=== PATIENT | female | born 1955 | race African-American/Black ===

== ENCOUNTER 2016-08-02 13:36 | Emergency (ER) | payer OTHER ==
[~2016-08-02] VITALS: Ht 154.9 cm; Wt 117.9 kg
[~2016-08-02 13:36] MED LIST: ASPIR 8181 MG ORAL; BUPROPION HCL100 MG PO; CARISOPRODOL350 MG PO; CATAPRES0.2 MG ORAL; CEPHALEXIN500 MG ORAL; CLARITIN-D 121 EAC1 PO; ENALAPRIL MALEA10 MG PO; HUMALOG 75/255 UNIT1 SUBQ; HUMALOG MI100 UNIT/6 SQ; HYDRALAZINE HCL25 M1 ORAL; IBUPROFEN600 MG ORAL; IBUPROFEN600 MG PO; LEVAQUIN500 MG ORAL; LITHOBID PO; LORATADINE10 M1 PO; LOSARTAN POTASS50 MG ORAL; METHOCARBAMOL500 MG ORAL; NORCO 5-325 TA1 EACH ORAL; NORCO 5-325 TA1 EACH PO; PRILOSEC20 MG PO; QVAR7.3 GM INH; RESTORIL7.5 MG PO; TYLENOL #31 TAB PO; VENTOLIN HFA18 GM INH; VERAPAMIL ER240 MG PO; ZITHROMAX500 MG ORAL
[2016-08-02 13:43] VITALS: BP 132/80
[2016-08-02] MEDS ORDERED: Norco 10mg/325mg tab ORAL ONE (14:15)
--- NOTE | 2016-08-02 16:02 | Emergency Room Report ---
History of Present Illness General Chief Complaint: Multiple Trauma/Fall Source: Patient Present Illness HPI [id number] BIBEMS for left chest wall and lower back pain s/p slip and fall on lower back in shower. Not sure if she hit chest on fall but very tender to palpation. Able to ambulate but with pain. Denies hitting head, LOC. Not on ASA, AC. Denies abd pain, SOB, headache, nasuea/vomiting, urinary complaints. Allergies: Coded Allergies: PENICILLINS (Verified Allergy, Severe, Anaphylaxis, 03/09/12) TOMATO (Verified Allergy, Severe, Anaphylaxis, 03/09/12) Kiwi (Verified Allergy, Intermediate, HIVES & UTACARIA, 03/09/12) IBUPROFEN (Unverified Allergy, Unknown, 08/02/16) Uncoded Allergies: PENICILLIN (Allergy, Unknown, 08/02/16) Patient History Past Medical History: see triage record, old chart reviewed Past Surgical History: none Pertinent Family History: none Social History: Denies: alcohol use, drug use, smoking Now: No Immunizations: UTD Reviewed Nursing Documentation: PMH: Agreed, PSxH: Agreed Nursing Documentation-PMH Past Medical History: No History, Except For Hx Hypertension: Yes Hx COPD: Yes Hx Diabetes: Yes Hx Cancer: No Hx Gastrointestinal Problems: Yes - gerd obesity Review of Systems All Other Systems: negative except mentioned in HPI Physical Exam Vital Signs Date Time Temp Pulse Resp B/P Pulse Ox O2 Delivery O2 Flow Rate FiO2 08/02/16 13:36 98.4 90 18 139/80 96 Room Air Sp02 EP Interpretation: reviewed, normal General Appearance: normal inspection, well appearing, no apparent distress, alert, GCS 15, non-toxic, obese Head: normocephalic, atraumatic Eyes: bilateral eye EOMI, bilateral eye PERRL ENT: normal ENT inspection, hearing grossly normal, normal voice Neck: normal inspection, full range of motion, supple, no bony tend Respiratory: normal inspection, lungs clear, normal breath sounds, no respiratory distress, no retraction, no wheezing, other - Chest wall vr, chest symmetrical Cardiovascular #1: regular rate, rhythm, no edema Gastrointestinal: normal inspection, normal bowel sounds, non tender, soft, no guarding, no hernia Genitourinary: no CVA tenderness Musculoskeletal: normal inspection, back normal, normal range of motion, Dominique' s Sign negative Neurologic: normal inspection, alert, oriented x3, responsive, er registrar III-XII nml as tested, motor strength/tone normal, speech normal Psychiatric: normal inspection, judgement/insight normal, mood/affect normal Skin: normal inspection, normal color, no rash Medical Decision Making Diagnostic Impression: Primary Impression: Fall Qualified Codes: W19.XXXA - Unspecified fall, initial encounter Additional Impressions: Rib contusion Qualified Codes: S20.212A - Contusion of left front wall of thorax, initial encounter Lower back injury Qualified Codes: S39.92XA - Unspecified injury of lower back, initial encounter ER Course Accidental trip and fall on lower back in shower Xrays of chest, LS spine unremarkable for acute traumatic injury VSS. Afebrile GCS 15 No distracting injury No focal neuro deficits Analgesia given in ED DC home Chest X-Ray Diagnostic Results Chest X-Ray Ordered: Yes # of Views/Limited/Complete: Complete EP Interpretation: Yes Interpretation: no consolidation, no effusion, no pneumothorax, no acute cardiopulmonary disease, other - no rib fx Indication: Chest Pain Impression: No acute disease Interpreting ER Provider: Rod Other X-Ray Diagnostic Results X-Ray ordered: LS spine # of Views/Limited Vs Complete: 3 View EP Interpretation: Yes Interpretation: no fractures, no dislocation Indication: Pain Impression: No acute disease Interpreting ER Provider: Rod Last Vital Signs Date Time Temp Pulse Resp B/P Pulse Ox O2 Delivery O2 Flow Rate FiO2 08/02/16 13:43 98.6 85 21 132/80 97 Room Air Status: improved Disposition: AGAINST MEDICAL ADVICE Referrals: NON PHYSICIAN (PCP) EILEEN BAILEY M.D. Aug 02, 2016 16:02
[2016-08-02] MEDS ORDERED: ACETAMINOPHEN-1 EAC1 ORAL (16:04)
[2016-08-02 16:56] VITALS: BP 149/77
--- NOTE | 2016-08-03 11:08 | Diagnostic Imaging Report ---
Indications: Fall, low back pain. Technique: 3 views of the lumbar spine Findings: Comparison: None 5 mm anterior subluxation of L5 on S1. Remainder of vertebral alignment is intact. No fracture, lytic destruction, or other acute changes are demonstrated. L5-S1 disc space narrowing with marginal osteophyte formation, discogenic sclerosis. Remaining disc space is unremarkable in appearance. Bones diffusely demineralized. IMPRESSION: No evidence of acute lumbar injury L5-S1 degenerative disc disease and grade 1 anterolisthesis
--- NOTE | 2016-08-03 11:13 | Diagnostic Imaging Report ---
\H\LEFT RIB RADIOGRAPHS\N\ Indications: Fall, left rib cage pain. Technique: 4 views of the left ribs. Findings: Comparison: None. Suboptimal positioning limits evaluation. Apparent focal contour deformity lateral aspect left sixth rib on single view. No acute fracture, lytic destruction, periosteal reaction, or other acute skeletal changes are identified. The overlying chest wall soft tissues, underlying pleura and pulmonary parenchyma are unremarkable. IMPRESSION: Suggestion of old fracture left sixth rib No definite evidence of acute fracture, limited as described \H\CHEST RADIOGRAPH\N\ Indications: Fall, chest pain Technique: Portable AP chest Findings: Comparison: 02/05/16 Suboptimal inspiration limits evaluation. Patient's body habitus decreases image quality, further limiting evaluation. Cardiac silhouette remains upper limits of normal in size. Central pulmonary vasculature remains prominent. Peripheral pulmonary vasculature remains within normal limits. Linear densities have developed in the right lung base and persistent left lower lung. Right minor fissure thickening persists. Otherwise, no pleural abnormality demonstrated. Old, healed fracture left clavicle again noted. IMPRESSION: Development of subsegmental atelectasis right lung base Otherwise no evidence of acute cardiopulmonary disease or acute injury Stable chronic changes as described
== END 2016-08-02 16:58 | disposition home or self-care (01) ==
LOC: EDBD 13:36 → EMR 14:46
DX: S20.212A Contusion of left front wall of thorax, initial encounter (principal); S39.92XA Unspecified injury of lower back, initial encounter; W19.XXXA Unspecified fall, initial encounter; Y92.012 Bathroom of single-family (private) house as the place of occurrence of the external cause; M51.36 Other intervertebral disc degeneration, lumbar region; I10 Essential (primary) hypertension; J44.9 Chronic obstructive pulmonary disease, unspecified; Z88.0 Allergy status to penicillin; Z91.018 Allergy to other foods; Z88.6 Allergy status to analgesic agent
CPT/HCPCS: 72020; 99283

== ENCOUNTER 2016-12-19 10:53 | Inpatient (IN) | payer OTHER ==
[~2016-12-19] VITALS: Ht 157.5 cm; Wt 108.9 kg
[~2016-12-19 10:53] MED LIST changes: +ACETAMINOPHEN-1 EAC1 ORAL
[2016-12-19] MEDS ORDERED: Sodium Chloride 500ML 500 ML IV ONE (11:21)
--- NOTE | 2016-12-19 11:23 | Emergency Room Report ---
History of Present Illness General Chief Complaint: Abdominal Pain Source: Patient, Medical Record Present Illness HPI Patient says with complaints of vomiting diarrhea She reports that she has noticed increased fresh blood in her diarrhea over the past one day Also complained of diffuse abdominal cramping Initially patient denied any fevers however she does state now that she has chills Patient also has increased shortness of breath with ambulation and feels generally weak Patient with multiple medical problems including hypertension and diabetes denies any recent travel Denies any dysuria frequency Allergies: Coded Allergies: PENICILLINS (Verified Allergy, Severe, Anaphylaxis, 03/09/12) TOMATO (Verified Allergy, Severe, Anaphylaxis, 03/09/12) Kiwi (Verified Allergy, Intermediate, HIVES & UTACARIA, 03/09/12) IBUPROFEN (Unverified Allergy, Unknown, 08/02/16) INFLUENZA VIRUS VACCINES (Verified Allergy, Unknown, 12/20/16) Uncoded Allergies: PENICILLIN (Allergy, Unknown, 08/02/16) Patient History Past Medical History: see triage record Pertinent Family History: none Reviewed Nursing Documentation: PMH: Agreed, PSxH: Agreed Nursing Documentation-PMH Past Medical History: No History, Except For Hx Hypertension: Yes Hx COPD: Yes Hx Diabetes: Yes Hx Cancer: No Hx Gastrointestinal Problems: Yes - gerd obesity Review of Systems All Other Systems: negative except mentioned in HPI Physical Exam Vital Signs Date Time Temp Pulse Resp B/P (MAP) Pulse Ox O2 Delivery O2 Flow Rate FiO2 12/19/16 11:10 97.5 97 16 204/107 94 Room Air Sp02 EP Interpretation: reviewed, normal General Appearance: mild distress - appears uncomfortable Head: normocephalic, atraumatic Eyes: bilateral eye PERRL, bilateral eye EOMI ENT: normal pharynx, dry mucus membranes Neck: supple Respiratory: no respiratory distress, no retraction, crackles - In both lower lobes Cardiovascular #1: regular rate, rhythm Gastrointestinal: non tender, soft Musculoskeletal: normal inspection Neurologic: alert, oriented x3, responsive Skin: normal color, no rash Lymphatic: no adenopathy Medical Decision Making Diagnostic Impression: Primary Impression: Diverticulitis ER Course Multiple differentials considered Patient's complex requiring blood work and imaging Patient's CAT scan imaging showing evidence of diverticulitis Patient was provided with IV hydration and pain medication including antibiotics has done better At this time stable for close followup inpatient Labs Test 12/19/16 11:35 White Blood Count 13.7 K/UL (4.8-10.8) Red Blood Count 5.17 M/UL (4.20-5.40) Hemoglobin 16.1 G/DL (12.0-16.0) Hematocrit 52.3 % (37.0-47.0) Mean Corpuscular Volume 101 FL (80-99) Mean Corpuscular Hemoglobin 31.2 PG (27.0-31.0) Mean Corpuscular Hemoglobin Concent 30.8 G/DL (32.0-36.0) Red Cell Distribution Width 14.4 % (11.6-14.8) Platelet Count 279 K/UL (150-450) Mean Platelet Volume 7.3 FL (6.5-10.1) Neutrophils (%) (Auto) % (45.0-75.0) Lymphocytes (%) (Auto) % (20.0-45.0) Monocytes (%) (Auto) % (1.0-10.0) Eosinophils (%) (Auto) % (0.0-3.0) Basophils (%) (Auto) % (0.0-2.0) Differential Total Cells Counted 100 Neutrophils % (Manual) 89 % (45-75) Lymphocytes % (Manual) 4 % (20-45) Monocytes % (Manual) 6 % (1-10) Eosinophils % (Manual) 1 % (0-3) Basophils % (Manual) 0 % (0-2) Band Neutrophils 0 % (0-8) Platelet Estimate Adequate Platelet Morphology Normal Prothrombin Time 9.9 SEC (9.30-11.50) Prothromb Time International Ratio 0.9 (0.9-1.1) Activated Partial Thromboplast Time 30 SEC (23-33) Sodium Level 144 MMOL/L (136-145) Potassium Level 2.9 MMOL/L (3.5-5.1) Chloride Level 110 MMOL/L (98-107) Carbon Dioxide Level 24 MMOL/L (21-32) Anion Gap 10 mmol/L (5-15) Blood Urea Nitrogen 14 mg/dL (7-18) Creatinine 0.7 MG/DL (0.55-1.30) Estimat Glomerular Filtration Rate > 60 mL/min (>60) Glucose Level 190 MG/DL (74-106) Calcium Level 6.3 MG/DL (8.5-10.1) Total Bilirubin 0.6 MG/DL (0.2-1.0) Aspartate Amino Transf (AST/SGOT) 14 U/L (15-37) Alanine Aminotransferase (ALT/SGPT) 15 U/L (12-78) Alkaline Phosphatase 59 U/L (46-116) Total Creatine Kinase 173 U/L (26-308) Creatine Kinase MB 6.9 NG/ML (0.0-3.6) Creatine Kinase MB Relative Index 3.9 Troponin I 0.000 ng/mL (0.000-0.056) Pro-B-Type Natriuretic Peptide 76 pg/mL (0-125) Total Protein 5.5 G/DL (6.4-8.2) Albumin 2.6 G/DL (3.4-5.0) Globulin 2.9 g/dL Albumin/Globulin Ratio 0.9 (1.0-2.7) Lipase 71 U/L (73-393) Rhythm Strip Diag. Results EP Interpretation: yes Rate: 66 Rhythm: NSR, no PVC's, no ectopy Chest X-Ray Diagnostic Results Chest X-Ray Diagnostic Results : Chest X-Ray Ordered: Yes # of Views/Limited/Complete: 1 View Indication: Chest Pain EP Interpretation: Yes Interpretation: no consolidation, no effusion, no pneumothorax, other - interstitial edema Impression: Other - interstitial markings Electronically Signed by: Kamila Morelos DO CT/MRI/US Diagnostic Results CT/MRI/US Diagnostic Results : Impression ct abd/pelvis: Impression: Acute sigmoid diverticulitis. 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 Limitation due to body habitus. Last Vital Signs Date Time Temp Pulse Resp B/P (MAP) Pulse Ox O2 Delivery O2 Flow Rate FiO2 12/19/16 11:10 97.5 97 16 204/107 94 Room Air Status: improved Disposition: ADMITTED INPATIENT Condition: Serious KAMILA MORELOS D.O. Dec 19, 2016 11:23
[2016-12-19] MEDS ORDERED: Morphine Sulfate 4mg/ml Inj IVP ONE (11:30)
[2016-12-19 11:58] LABS: MEAN CORPUSCULAR HEMOGLOBIN 31.2 PG (27.0-31.0); MEAN CORPUSCULAR HGB CONC 30.8 G/DL (32.0-36.0); MEAN CORPUSCULAR VOLUME 101 FL (80-99); MEAN PLATELET VOLUME 7.3 FL (6.5-10.1); PLATELET COUNT 279 K/UL (150-450); RED BLOOD COUNT 5.17 M/UL (4.20-5.40); RED CELL DISTRIBUTION WIDTH 14.4 % (11.6-14.8); WHITE BLOOD COUNT 13.7 K/UL (4.8-10.8)
[2016-12-19 12:04] LABS: INR 0.9 (0.9-1.1); PROTHROMBIN TIME 9.9 SEC (9.30-11.50)
[2016-12-19] MEDS ORDERED: JANUVIA25 MG ORAL (12:15)
[2016-12-19] MEDS ORDERED: GABAPENTIN300 MG ORAL ×2 (12:15)
[2016-12-19 12:25] LABS: BAND NEUTROPHILS % (MANUAL) 0 % (0-8); BASOPHILS % (MANUAL) 0 % (0-2); EOSINOPHILS % (MANUAL) 1 % (0-3); LYMPHOCYTES % (MANUAL) 4 % (20-45); NEUTROPHILS % (MANUAL) 89 % (45-75); PLATELET ESTIMATE ADEQUATE; PLATELET MORPHOLOGY NORMAL; TOTAL CELLS COUNTED 100
[2016-12-19 12:27] LABS: ANION GAP 10 mmol/L (5-15); CALCIUM 6.3 MG/DL (8.5-10.1); CARBON DIOXIDE 24 MMOL/L (21-32); CHLORIDE 110 MMOL/L (98-107); CREATININE 0.7 MG/DL (0.55-1.30); GLOMERULAR FILTRATION RATE > 60 mL/min (>60); POTASSIUM 2.9 MMOL/L (3.5-5.1); SODIUM 144 MMOL/L (136-145)
--- NOTE | 2016-12-19 12:37 | Diagnostic Imaging Report ---
Indication: Dyspnea Comparison: None A single view chest radiograph was obtained. Findings: There is interstitial edema with a prominent pulmonary vascularity centrally as well as a cardiomegaly. Bones are osteopenic. Impression: CHF/interstitial edema
[2016-12-19 12:39] LABS: ALANINE AMINOTRANSFERASE 15 U/L (12-78); ALBUMIN/GLOBULIN RATIO 0.9 (1.0-2.7); ASPARTATE AMINO TRANSFERASE 14 U/L (15-37); CKMB 6.9 NG/ML (0.0-3.6); LIPASE 71 U/L (73-393); TOTAL PROTEIN 5.5 G/DL (6.4-8.2)
[2016-12-19 12:40] VITALS: BP 188/102
[2016-12-19 13:30] VITALS: BP 187/100
--- NOTE | 2016-12-19 13:46 | Diagnostic Imaging Report ---
Indication: Abdominal pain Technique: Continuous helical transaxial imaging of the abdomen and pelvis was obtained from the lung bases to the pubic symphysis. No intravenous contrast was administered. Coronal 2-D reformats were also obtained. Automatic Exposure Control was utilized. Total Dose length Product (DLP): [address] Dose Index Volume (CTDIvol): 0.15, 19.75 mGy Comparison: none Findings: There is perisigmoid soft tissue stranding with extensive diverticulosis present. Findings consistent with acute diverticulitis. This is in the left hemipelvis region. There is no abscess identified. There is no free air. Extensive diverticulosis of the colon demonstrated diffusely. Mild reticular densities noted at the lung bases likely atelectasis. There is no nephrolithiasis or hydronephrosis. Aorta is mildly calcified. There is a some limitation in image quality because of body habitus. Normal retrocecal appendix is noted. A small umbilical hernia containing fat demonstrated. Uterus is noted. Vacuum phenomena and narrowing of L5-S1 disc, endplate spurs, minimal anterolisthesis and moderate facet arthropathy demonstrated. Impression: Acute sigmoid diverticulitis. 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 Limitation due to body habitus. The CT scanner at [facility] is accredited by the [employer] and the scans are performed using dose optimization techniques as appropriate to a performed exam including Automatic Exposure control.
[2016-12-19] MEDS ORDERED: Nitroglycerin Subl 0.4mg tab SL PRN (14:00)
[2016-12-19] MEDS ORDERED: Miralax 17gm pkt ORAL PRN (14:00)
[2016-12-19] MEDS ORDERED: Mylanta II UD 30ml ORAL PRN (14:00)
[2016-12-19 14:30] VITALS: BP 165/95
--- NOTE | 2016-12-19 14:47 | History and Physical ---
History of Present Illness General Date patient seen: Dec 19, 2016 Reason for Hospitalization: Abdominal Pain Present Illness HPI 61 year old female with hx of COPD, HTN presented with CC of with of vomiting and diarrhea She reports that she has noticed increased fresh blood in her diarrhea over the past one day. Also complained of diffuse abdominal cramping and she also has chills. Her CT in ER showed diverticulitis and she is admitted for further work up. Allergies: Coded Allergies: PENICILLINS (Verified Allergy, Severe, Anaphylaxis, 03/09/12) TOMATO (Verified Allergy, Severe, Anaphylaxis, 03/09/12) Kiwi (Verified Allergy, Intermediate, HIVES & UTACARIA, 03/09/12) IBUPROFEN (Unverified Allergy, Unknown, 08/02/16) Uncoded Allergies: PENICILLIN (Allergy, Unknown, 08/02/16) Medication History Scheduled Acetaminophen/Codeine 300MG/30MG* (Tylenol #3*), 1 TAB PO Q4H, (Reported) Albuterol Sulfate (Ventolin Hfa), 2 PUFFS INH EVERY 6 HOURS, (Reported) Aspirin* (Aspir 81*), 81 MG ORAL DAILY, (Reported) Beclomethasone Dipropionate 40MCG Oral Inh (Qvar 40*), 1 PUFF INH TWICE A DAY, ( Reported) Bupropion Hcl* (Bupropion Hcl*), 300 MG PO DAILY, (Reported) Carisoprodol* (Carisoprodol*), 350 MG PO QHS, (Reported) Cephalexin* (Keflex*), 500 MG ORAL EVERY 12 HOURS Clonidine Hcl* (Catapres*), 0.2 MG ORAL BID, (Reported) Enalapril Maleate* (Enalapril Maleate*), 10 MG PO Q12HR, (Reported) Gabapentin* (Gabapentin*), 300 MG ORAL DAILY, (Reported) Gabapentin* (Gabapentin*), 600 MG ORAL BEDTIME, (Reported) Hydralazine Hcl* (Hydralazine Hcl*), 25 MG ORAL EVERY 8 HOURS, (Reported) Insulin Human Lispro (Humalog), 35 SUBQ BID, (Reported) Loratadine (Loratadine), 10 MG PO DAILY, (Reported) Losartan Potassium* (Losartan Potassium*), 100 MG ORAL DAILY, (Reported) Omeprazole (Prilosec), 20 MG PO DAILY, (Reported) Sitagliptin* (Januvia*), 100 MG ORAL DAILY, (Reported) Temazepam* (Restoril*), 15 MG PO QHS, (Reported) Verapamil Hcl* (Calan Sr*), 240 MG PO DAILY, (Reported) [Lithobid], 300 MG PO DAILY, (Reported) Scheduled PRN Acetaminophen With Codeine (T#3) (Tylenol #3 Tab*), 1 TAB ORAL Q8H PRN for For Pain Hydrocodone Bit/Acetaminophen 5-325* ([place] 5-325*), 1 TAB ORAL Q6H PRN for For Pain Ibuprofen* (Motrin*), 600 MG ORAL Q8H PRN for For Pain Methocarbamol* (Methocarbamol*), 500 MG ORAL QID PRN for For Pain, (Reported) Miscellaneous Medications Insulin Npl/Insulin Lispro (Humalog Mix 75-25 Vial), 0 SQ, (Reported) Patient History Healthcare decision maker Resuscitation status Advanced Directive on File Past Medical/Surgical History Past Medical/Surgical History: (1) History of hypertension Review of Systems All Other Systems: negative except mentioned in HPI Physical Exam General Appearance: WD/WN Lines, tubes and drains: peripheral HEENT: normocephalic, atraumatic Neck: non-tender, normal alignment Respiratory/Chest: chest wall non-tender, lungs clear Breasts: no masses Cardiovascular/Chest: normal peripheral pulses Abdomen: normal bowel sounds, non tender Genitourinary/Rectal: normal genital exam, normal rectal exam Extremities: normal range of motion Neurologic: book binder II-XII grossly normal Last 24 Hour Vital Signs Date Time Temp Pulse Resp B/P (MAP) Pulse Ox O2 Delivery O2 Flow Rate FiO2 12/19/16 13:48 189/100 12/19/16 13:30 97.8 88 16 187/100 95 Room Air 12/19/16 12:40 97.9 92 16 188/102 95 Room Air 12/19/16 12:17 97.6 12/19/16 11:10 97.5 97 16 204/107 94 Room Air Intake and Output 12/19/16 12/20/16 19:00 07:00 Intake Total 500 ml Balance 500 ml Intake IV Total 500 ml Laboratory Tests Test 12/19/16 11:35 White Blood Count 13.7 K/UL (4.8-10.8) H Red Blood Count 5.17 M/UL (4.20-5.40) Hemoglobin 16.1 G/DL (12.0-16.0) H Hematocrit 52.3 % (37.0-47.0) H Mean Corpuscular Volume 101 FL (80-99) H Mean Corpuscular Hemoglobin 31.2 PG (27.0-31.0) H Mean Corpuscular Hemoglobin Concent 30.8 G/DL (32.0-36.0) L Red Cell Distribution Width 14.4 % (11.6-14.8) Platelet Count 279 K/UL (150-450) Mean Platelet Volume 7.3 FL (6.5-10.1) Neutrophils (%) (Auto) % (45.0-75.0) Lymphocytes (%) (Auto) % (20.0-45.0) Monocytes (%) (Auto) % (1.0-10.0) Eosinophils (%) (Auto) % (0.0-3.0) Basophils (%) (Auto) % (0.0-2.0) Differential Total Cells Counted 100 Neutrophils % (Manual) 89 % (45-75) H Lymphocytes % (Manual) 4 % (20-45) L Monocytes % (Manual) 6 % (1-10) Eosinophils % (Manual) 1 % (0-3) Basophils % (Manual) 0 % (0-2) Band Neutrophils 0 % (0-8) Platelet Estimate Adequate Platelet Morphology Normal Prothrombin Time 9.9 SEC (9.30-11.50) Prothromb Time International Ratio 0.9 (0.9-1.1) Activated Partial Thromboplast Time 30 SEC (23-33) Sodium Level 144 MMOL/L (136-145) Potassium Level 2.9 MMOL/L (3.5-5.1) L Chloride Level 110 MMOL/L (98-107) H Carbon Dioxide Level 24 MMOL/L (21-32) Anion Gap 10 mmol/L (5-15) Blood Urea Nitrogen 14 mg/dL (7-18) Creatinine 0.7 MG/DL (0.55-1.30) Estimat Glomerular Filtration Rate > 60 mL/min (>60) Glucose Level 190 MG/DL (74-106) H Calcium Level 6.3 MG/DL (8.5-10.1) L Total Bilirubin 0.6 MG/DL (0.2-1.0) Aspartate Amino Transf (AST/SGOT) 14 U/L (15-37) L Alanine Aminotransferase (ALT/SGPT) 15 U/L (12-78) Alkaline Phosphatase 59 U/L (46-116) Total Creatine Kinase 173 U/L (26-308) Creatine Kinase MB 6.9 NG/ML (0.0-3.6) H Creatine Kinase MB Relative Index 3.9 Troponin I 0.000 ng/mL (0.000-0.056) Pro-B-Type Natriuretic Peptide 76 pg/mL (0-125) Total Protein 5.5 G/DL (6.4-8.2) L Albumin 2.6 G/DL (3.4-5.0) L Globulin 2.9 g/dL Albumin/Globulin Ratio 0.9 (1.0-2.7) L Lipase 71 U/L (73-393) L Height (Feet): 5 Height (Inches): 2.00 Weight (Pounds): 240 Medications Current Medications Medications (Trade) Dose Ordered Sig/Sage Route PRN Reason Start Time Stop Time Status Last Admin Dose Admin Acetaminophen (Tylenol) 650 mg Q4H PRN ORAL fever 12/19/16 14:00 01/18/17 13:59 UNV Al Hydroxide/Mg Hydroxide (Mylanta II) 30 ml Q6H PRN ORAL dyspepsia 12/19/16 14:00 01/18/17 13:59 UNV Albuterol Sulfate (Proventil MDI) 2 puff EVERY 6 HOURS INH 12/19/16 18:00 01/18/17 17:59 UNV Bupropion HCl (Wellbutrin) 300 mg DAILY ORAL 12/20/16 09:00 01/19/17 08:59 UNV Carisoprodol (Soma) 350 mg QHS ORAL 12/19/16 21:00 01/18/17 20:59 UNV Dextrose (Dextrose 50%) STAT PRN IV Hypoglycemia 12/19/16 14:00 01/18/17 13:59 UNV Dextrose/Sodium Chloride 1,000 ml @ 75 mls/hr [id number] IV 12/19/16 17:40 01/18/17 17:39 UNV Diphenhydramine HCl (Benadryl) 25 mg Q6H PRN ORAL Itching/Pruritis 12/19/16 14:00 01/18/17 13:59 UNV Gabapentin (Neurontin) 600 mg BEDTIME ORAL 12/19/16 21:00 01/18/17 20:59 UNV Hydralazine HCl (Apresoline) 25 mg EVERY 8 HOURS ORAL 12/19/16 14:00 01/18/17 13:59 UNV Insulin Aspart (NovoLOG) BEFORE MEALS AND HS SUBQ 12/19/16 16:30 01/18/17 16:29 UNV Levofloxacin 100 ml @ 100 mls/hr Q24H ONCE IVPB 12/19/16 14:00 12/19/16 14:59 12/19/16 14:32 Losartan Potassium (Cozaar) 100 mg DAILY ORAL 12/20/16 09:00 01/19/17 08:59 UNV Metronidazole 100 ml @ 100 mls/hr ONCE ONCE IVPB 12/19/16 14:00 12/19/16 14:59 12/19/16 14:30 Nitroglycerin (Ntg) 0.4 mg Q5M X 3 DOSES PRN SL Prn Chest Pain 12/19/16 14:00 01/18/17 13:59 UNV Ondansetron HCl (Zofran) 4 mg Q6H PRN IVP Nausea & Vomiting 12/19/16 14:00 01/18/17 13:59 UNV Polyethylene Glycol (Miralax) 17 gm HSPRN PRN ORAL Constipation 12/19/16 14:00 01/18/17 13:59 UNV Temazepam (Restoril) 15 mg HSPRN PRN ORAL Insomnia 12/19/16 14:00 12/26/16 13:59 UNV Temazepam (Restoril) 15 mg QHS ORAL 12/19/16 21:00 12/26/16 20:59 UNV Verapamil HCl (Calan SR) 240 mg DAILY ORAL 12/20/16 09:00 01/19/17 08:59 UNV Assessment/Plan Problem List: (1) GI (gastrointestinal bleed) ICD Codes: K92.2 - Gastrointestinal hemorrhage, unspecified SNOMED: 57610126 (2) Diverticulitis ICD Codes: K57.92 - Diverticulitis of intestine, part unspecified, without perforation or abscess without bleeding SNOMED: 327920560 (3) History of hypertension ICD Codes: Z86.79 - Personal history of other diseases of the circulatory system SNOMED: 966631818 Assessment/Plan npo IV fluids GI evaluation symptomatic treatment check h/h transfuse prCHARIS Mullins Dec 19, 2016 14:47
[2016-12-19 15:46] VITALS: BP 154/89
--- NOTE | 2016-12-19 15:47 | GI Initial Consult Note ---
History of Present Illness General Date patient seen: Dec 19, 2016 Time patient seen: 15:42 Reason for Hospitalization: Abdominal Pain Referring physician: CHARIS MOORE Reason for Consultation: GI BLEED Present Illness HPI Patient says with complaints of vomiting diarrhea She reports that she has noticed increased fresh blood in her diarrhea over the past one day Also complained of diffuse abdominal cramping Initially patient denied any fevers however she does state now that she has chills Patient also has increased shortness of breath with ambulation and feels generally weak Patient with multiple medical problems including hypertension and diabetes denies any recent travel Denies any dysuria frequency GI consulted for LGIB. HPI as noted above. Pt seen on floor, awake A&Ox4 NAD with no active s/sx of N/V/D. Pt c/o of watery diarrhea x2-3 days. She said during an episode she noted bright red blood in her stool. She states she has also been constipated in which she had to strain to have a movement. She has also stated she had episodes of emesis, but denies any hematemesis or coffee grounds. Her last EGD/colonoscopy was performed 5+ years ago, but unsure of the results. She presents today leukocytosis, hypokalemia, hypoalbuminemia and elevated lipase. Social history of tobacco and marijuana use since childhood. Denies ETOH use. CT AP reviewed: Acute sigmoid diverticulitis. 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 Limitation due to body habitus. Home Meds Active Scripts Acetaminophen With Codeine (T#3) (TYLENOL #3 TAB*) Y Tab, 1 TAB ORAL Q8H Y for For Pain for 7 Days, #30 TAB Prov:EILEEN BAILEY M.D. 08/02/16 Cephalexin* (KEFLEX*) 500 Mg Capsule, 500 MG ORAL EVERY 12 HOURS, #20 CAP 0 Refills Prov:TERZIWILLI LOVE P.AAmanda 02/05/16 Hydrocodone Bit/Acetaminophen 5-325* (NORCO 5-325*) 1 Each Tablet, 1 TAB ORAL Q6H Y for For Pain, #10 TAB 0 Refills Prov:OMAR MALHOTRA M.D. 01/21/16 Ibuprofen* (MOTRIN*) 600 Mg Tablet, 600 MG ORAL Q8H Y for For Pain, #30 TAB 0 Refills Prov:OMAR MALHOTRA M.D. 01/21/16 Reported Medications Gabapentin* (GABAPENTIN*) 300 Mg Capsule, 600 MG ORAL BEDTIME, CAP 0 Refills 12/19/16 Gabapentin* (GABAPENTIN*) 300 Mg Capsule, 300 MG ORAL DAILY, CAP 12/19/16 Sitagliptin* (JANUVIA*) 25 Mg Tablet, 100 MG ORAL DAILY, TAB 12/19/16 Methocarbamol* (METHOCARBAMOL*) 500 Mg Tablet, 500 MG ORAL QID Y for For Pain, # 20 TAB 0 Refills 01/21/16 Hydralazine Hcl* (HYDRALAZINE HCL*) 25 Mg Tablet, 25 MG ORAL EVERY 8 HOURS, TAB 0 Refills 01/21/16 Losartan Potassium* (LOSARTAN POTASSIUM*) 50 Mg Tablet, 100 MG ORAL DAILY, TAB 01/21/16 Albuterol Sulfate (VENTOLIN HFA) 18 Gm Hfa.aer.ad, 2 PUFFS INH EVERY 6 HOURS, # 2 INH 0 Refills 01/17/13 Beclomethasone Dipropionate 40MCG Oral Inh (QVAR 40*) 7.3 Gm Aer.w.adap, 1 PUFF INH TWICE A DAY, GM 0 Refills 01/17/13 Insulin Human Lispro (Humalog) 5 Units Vial, 35 SUBQ BID, #1 UNIT 0 Refills 01/17/13 Aspirin* (ASPIR 81*) 81 Mg Tablet.dr, 81 MG ORAL DAILY, TAB 07/22/12 Clonidine Hcl* (CATAPRES*) 0.2 Mg Tablet, 0.2 MG ORAL BID 06/03/12 Insulin Npl/Insulin Lispro (HUMALOG MIX 75-25 VIAL) 100 Unit/1 Ml Vial, 0 SQ 03/09/12 Bupropion Hcl* (BUPROPION HCL*) 100 Mg Tablet, 300 MG PO DAILY 03/09/12 [Lithobid] No Conflict Check, 300 MG PO DAILY 03/09/12 Temazepam* (RESTORIL*) 7.5 Mg Capsule, 15 MG PO QHS, #10 CAP Take 1 capsule by mouth aat bedtime. 03/09/12 Loratadine (LORATADINE) 10 Mg Tab.rapdis, 10 MG PO DAILY 03/09/12 Omeprazole (PRILOSEC) 20 Mg Capsule.dr, 20 MG PO DAILY, #15 TAB Take 1 capsule by mouth daily. 03/09/12 Verapamil Hcl* (CALAN SR*) 240 Mg Tablet.er, 240 MG PO DAILY 03/09/12 Carisoprodol* (CARISOPRODOL*) 350 Mg Tablet, 350 MG PO QHS 03/09/12 Enalapril Maleate* (ENALAPRIL MALEATE*) 10 Mg Tablet, 10 MG PO Q12HR 03/09/12 Acetaminophen/Codeine 300MG/30MG* (TYLENOL #3*) 1 Tab Tab, 1 TAB PO Q4H, #15 TAB 03/09/12 Med list reviewed/reconciled: Yes Allergies: Coded Allergies: PENICILLINS (Verified Allergy, Severe, Anaphylaxis, 03/09/12) TOMATO (Verified Allergy, Severe, Anaphylaxis, 03/09/12) Kiwi (Verified Allergy, Intermediate, HIVES & UTACARIA, 03/09/12) IBUPROFEN (Unverified Allergy, Unknown, 08/02/16) Uncoded Allergies: PENICILLIN (Allergy, Unknown, 08/02/16) Patient History History Provided By: Patient, Medical Record PMH Narrative Past Medical History: see triage record Pertinent Family History: none Reviewed Nursing Documentation: PMH: Agreed, PSxH: Agreed Nursing Documentation-PMH Past Medical History: No History, Except For Hx Hypertension: Yes Hx COPD: Yes Hx Diabetes: Yes Hx Cancer: No Hx Gastrointestinal Problems: Yes - GERD obesity Social History: Reports: smoking, drug use - marijuana Review of Systems All Other Systems: negative except mentioned in HPI Physical Exam Vital Signs Date Time Temp Pulse Resp B/P (MAP) Pulse Ox O2 Delivery O2 Flow Rate FiO2 12/19/16 11:10 97.5 97 16 204/107 94 Room Air Sp02 EP Interpretation: reviewed, normal Labs Laboratory Tests Test 12/19/16 11:35 White Blood Count 13.7 K/UL (4.8-10.8) H Red Blood Count 5.17 M/UL (4.20-5.40) Hemoglobin 16.1 G/DL (12.0-16.0) H Hematocrit 52.3 % (37.0-47.0) H Mean Corpuscular Volume 101 FL (80-99) H Mean Corpuscular Hemoglobin 31.2 PG (27.0-31.0) H Mean Corpuscular Hemoglobin Concent 30.8 G/DL (32.0-36.0) L Red Cell Distribution Width 14.4 % (11.6-14.8) Platelet Count 279 K/UL (150-450) Mean Platelet Volume 7.3 FL (6.5-10.1) Neutrophils (%) (Auto) % (45.0-75.0) Lymphocytes (%) (Auto) % (20.0-45.0) Monocytes (%) (Auto) % (1.0-10.0) Eosinophils (%) (Auto) % (0.0-3.0) Basophils (%) (Auto) % (0.0-2.0) Differential Total Cells Counted 100 Neutrophils % (Manual) 89 % (45-75) H Lymphocytes % (Manual) 4 % (20-45) L Monocytes % (Manual) 6 % (1-10) Eosinophils % (Manual) 1 % (0-3) Basophils % (Manual) 0 % (0-2) Band Neutrophils 0 % (0-8) Platelet Estimate Adequate Platelet Morphology Normal Prothrombin Time 9.9 SEC (9.30-11.50) Prothromb Time International Ratio 0.9 (0.9-1.1) Activated Partial Thromboplast Time 30 SEC (23-33) Sodium Level 144 MMOL/L (136-145) Potassium Level 2.9 MMOL/L (3.5-5.1) L Chloride Level 110 MMOL/L (98-107) H Carbon Dioxide Level 24 MMOL/L (21-32) Anion Gap 10 mmol/L (5-15) Blood Urea Nitrogen 14 mg/dL (7-18) Creatinine 0.7 MG/DL (0.55-1.30) Estimat Glomerular Filtration Rate > 60 mL/min (>60) Glucose Level 190 MG/DL (74-106) H Calcium Level 6.3 MG/DL (8.5-10.1) L Total Bilirubin 0.6 MG/DL (0.2-1.0) Aspartate Amino Transf (AST/SGOT) 14 U/L (15-37) L Alanine Aminotransferase (ALT/SGPT) 15 U/L (12-78) Alkaline Phosphatase 59 U/L (46-116) Total Creatine Kinase 173 U/L (26-308) Creatine Kinase MB 6.9 NG/ML (0.0-3.6) H Creatine Kinase MB Relative Index 3.9 Troponin I 0.000 ng/mL (0.000-0.056) Pro-B-Type Natriuretic Peptide 76 pg/mL (0-125) Total Protein 5.5 G/DL (6.4-8.2) L Albumin 2.6 G/DL (3.4-5.0) L Globulin 2.9 g/dL Albumin/Globulin Ratio 0.9 (1.0-2.7) L Lipase 71 U/L (73-393) L General Appearance: well appearing, no apparent distress, alert, obese Head: normocephalic EENT: PERRL/EOMI, normal ENT inspection Neck: supple Respiratory: normal breath sounds, no respiratory distress Cardiovascular: normal rate Gastrointestinal: normal inspection, non tender, soft, normal bowel sounds, non -distended Rectal: deferred Genitourinary: no CVA tenderness Musculoskeletal: normal inspection, back normal Neurologic: normal inspection, alert, oriented x3, responsive Psychiatric: normal inspection, judgement/insight normal, memory normal Skin: normal inspection, normal color, no rash, warm/dry, palpation normal, well hydrated Lymphatic: normal inspection, no adenopathy Current Medications Current Medications Medications (Trade) Dose Ordered Sig/Sage Route PRN Reason Start Time Stop Time Status Last Admin Dose Admin Acetaminophen (Tylenol) 650 mg Q4H PRN ORAL fever 12/19/16 14:00 01/18/17 13:59 Al Hydroxide/Mg Hydroxide (Mylanta II) 30 ml Q6H PRN ORAL dyspepsia 12/19/16 14:00 01/18/17 13:59 Albuterol Sulfate (Proventil MDI) 2 puff EVERY 6 HOURS INH 12/19/16 18:00 01/18/17 17:59 Bupropion HCl (Wellbutrin) 300 mg DAILY ORAL 12/20/16 09:00 01/19/17 08:59 UNV Carisoprodol (Soma) 350 mg QHS ORAL 12/19/16 21:00 01/18/17 20:59 Dextrose (Dextrose 50%) STAT PRN IV Hypoglycemia 12/19/16 14:00 01/18/17 13:59 Dextrose/Sodium Chloride 1,000 ml @ 75 mls/hr [id number] IV 12/19/16 16:00 01/18/17 15:59 Diphenhydramine HCl (Benadryl) 25 mg Q6H PRN ORAL Itching/Pruritis 12/19/16 14:00 01/18/17 13:59 Gabapentin (Neurontin) 600 mg BEDTIME ORAL 12/19/16 21:00 01/18/17 20:59 Hydralazine HCl (Apresoline) 25 mg EVERY 8 HOURS ORAL 12/19/16 15:45 01/18/17 15:44 Insulin Aspart (NovoLOG) BEFORE MEALS AND HS SUBQ 12/19/16 16:30 01/18/17 16:29 Losartan Potassium (Cozaar) 100 mg DAILY ORAL 12/20/16 09:00 01/19/17 08:59 Nitroglycerin (Ntg) 0.4 mg Q5M X 3 DOSES PRN SL Prn Chest Pain 12/19/16 14:00 01/18/17 13:59 Ondansetron HCl (Zofran) 4 mg Q6H PRN IVP Nausea & Vomiting 12/19/16 14:00 01/18/17 13:59 Polyethylene Glycol (Miralax) 17 gm HSPRN PRN ORAL Constipation 12/19/16 14:00 01/18/17 13:59 Temazepam (Restoril) 15 mg HSPRN PRN ORAL Insomnia 12/19/16 14:00 12/26/16 13:59 UNV Temazepam (Restoril) 15 mg QHS ORAL 12/19/16 21:00 12/26/16 20:59 Verapamil HCl (Calan SR) 240 mg DAILY ORAL 12/20/16 09:00 01/19/17 08:59 GI: Plan Problems: (1) Diabetes mellitus (2) Hematochezia (3) Hypoalbuminemia (4) Elevated lipase (5) Hypokalemia (6) GI (gastrointestinal bleed) (7) Cyclical vomiting (8) Marijuana use Plan defer EGD/colon at this time given stable H&H OB stool r/o GI bleed send for cdiff, stool culture adv to ADA soft diet >> ok to dc IVFs if patient tolerates PO > 500 electrolyte replacement H2B possible cyclic vomiting >> monitor lipase fu labs outpatient GI procedures Discussed with Dr. Mancuso. Thank you for this patient referral, we will follow. OconnorCassy simpson N.P. Dec 19, 2016 15:47
[2016-12-19] MEDS ORDERED: D5 1/2NS 1,000 ML IV SCH (16:00)
[2016-12-19] MEDS: HydrALAZINE 25mg tab ORAL SCH ×2 (16:58→23:53)
[2016-12-19] MEDS: NovoLOG Insulin Flexpen SUBQ SCH ×2 (16:59→20:26)
[2016-12-19] MEDS: Albuterol 90mcg Inhaler 8gm INH SCH (19:59)
[2016-12-19 20:00] VITALS: BP 148/84
[2016-12-20] VITALS (9 sets, daily range): BP systolic 112–148; BP diastolic 67–89
[2016-12-20] MEDS: Albuterol 90mcg Inhaler 8gm INH SCH ×5 (01:18→23:55)
[2016-12-20] MEDS: HydrALAZINE 25mg tab ORAL SCH ×3 (05:51→22:16)
[2016-12-20] MEDS: NovoLOG Insulin Flexpen SUBQ SCH ×4 (06:46→21:04)
[2016-12-20 07:41] LABS: BASOPHILS % (AUTO) 0.4 % (0.0-2.0); EOSINOPHILS % (AUTO) 0.1 % (0.0-3.0); LYMPHOCYTES % (AUTO) 13.6 % (20.0-45.0); MEAN CORPUSCULAR HEMOGLOBIN 31.9 PG (27.0-31.0); MEAN CORPUSCULAR HGB CONC 30.9 G/DL (32.0-36.0); MEAN CORPUSCULAR VOLUME 103 FL (80-99); MEAN PLATELET VOLUME 7.2 FL (6.5-10.1); MONOCYTES % (AUTO) 6.8 % (1.0-10.0); NEUTROPHILS % (AUTO) 79.1 % (45.0-75.0); PLATELET COUNT 239 K/UL (150-450); RED BLOOD COUNT 4.55 M/UL (4.20-5.40); RED CELL DISTRIBUTION WIDTH 14.4 % (11.6-14.8); WHITE BLOOD COUNT 11.1 K/UL (4.8-10.8)
[2016-12-20] MEDS ORDERED: Morphine Sulfate 4mg/ml Inj IVP PRN ×2 (08:30→12:30)
--- NOTE | 2016-12-20 08:55 | Pulmonology Progress Note ---
Assessment/Plan Problems: (1) Diverticulitis (2) GI (gastrointestinal bleed) (3) History of hypertension (4) Osteoarthritis (5) Diabetes mellitus Assessment/Plan continue IV abx check electroltyes GI evaluation increase dose of pain meds Subjective ROS Limited/Unobtainable: No Interval Events: NO BM yet, c/o severe joint pain Constitutional: Reports: no symptoms HEENT: Repors: no symptoms Respiratory: Reports: no symptoms Allergies: Coded Allergies: PENICILLINS (Verified Allergy, Severe, Anaphylaxis, 03/09/12) TOMATO (Verified Allergy, Severe, Anaphylaxis, 03/09/12) Kiwi (Verified Allergy, Intermediate, HIVES & UTACARIA, 03/09/12) IBUPROFEN (Unverified Allergy, Unknown, 08/02/16) INFLUENZA VIRUS VACCINES (Verified Allergy, Unknown, 12/20/16) Uncoded Allergies: PENICILLIN (Allergy, Unknown, 08/02/16) Objective Last 24 Hour Vital Signs Date Time Temp Pulse Resp B/P (MAP) Pulse Ox O2 Delivery O2 Flow Rate FiO2 12/20/16 07:21 93 18 98 Room Air 12/20/16 07:20 92 18 98 Room Air 21 12/20/16 05:51 112/89 12/20/16 04:12 98 12/20/16 04:00 98.2 121 20 112/89 96 Room Air 12/20/16 01:21 97 18 98 Room Air 12/20/16 01:18 97 18 98 Room Air 12/20/16 00:36 105 12/20/16 00:00 98.2 121 20 128/86 100 Room Air 12/19/16 23:53 128/86 12/19/16 20:01 110 20 98 Room Air 12/19/16 20:00 99.0 120 18 148/84 96 Room Air 12/19/16 19:59 109 20 98 Room Air 12/19/16 16:58 154/89 12/19/16 15:46 98.8 114 21 154/89 100 Room Air 12/19/16 15:00 97.8 84 16 165/95 96 Room Air 12/19/16 14:30 97.8 84 16 165/95 96 Room Air 12/19/16 13:48 189/100 12/19/16 13:30 97.8 88 16 187/100 95 Room Air 12/19/16 12:40 97.9 92 16 188/102 95 Room Air 12/19/16 12:17 97.6 12/19/16 11:10 97.5 97 16 204/107 94 Room Air General Appearance: WD/WN, no acute distress HEENT: normocephalic Respiratory/Chest: chest wall non-tender, lungs clear Breasts: no masses Cardiovascular: regular rhythm Abdomen: no organomegaly Extremities: no cyanosis Skin: no lesions Laboratory Tests 12/19/16 11:35: White Blood Count 13.7H, Red Blood Count 5.17, Hemoglobin 16.1H, Hematocrit 52.3H, Mean Corpuscular Volume 101H, Mean Corpuscular Hemoglobin 31.2H, Mean Corpuscular Hemoglobin Concent 30.8L, Red Cell Distribution Width 14.4, Platelet Count 279, Mean Platelet Volume 7.3, Neutrophils (%) (Auto) , Lymphocytes (%) (Auto) , Monocytes (%) (Auto) , Eosinophils (%) (Auto) , Basophils (%) (Auto) , Differential Total Cells Counted 100, Neutrophils % ( Manual) 89H, Lymphocytes % (Manual) 4L, Monocytes % (Manual) 6, Eosinophils % ( Manual) 1, Basophils % (Manual) 0, Band Neutrophils 0, Platelet Estimate Adequate, Platelet Morphology Normal, Prothrombin Time 9.9, Prothromb Time International Ratio 0.9, Activated Partial Thromboplast Time 30, Sodium Level 144, Potassium Level 2.9L, Chloride Level 110H, Carbon Dioxide Level 24, Anion Gap 10, Blood Urea Nitrogen 14, Creatinine 0.7, Estimat Glomerular Filtration Rate > 60, Glucose Level 190H, Calcium Level 6.3L, Total Bilirubin 0.6, Aspartate Amino Transf (AST/SGOT) 14L, Alanine Aminotransferase (ALT/SGPT) 15, Alkaline Phosphatase 59, Total Creatine Kinase 173, Creatine Kinase MB 6.9H, Creatine Kinase MB Relative Index 3.9, Troponin I 0.000, Pro-B-Type Natriuretic Peptide 76, Total Protein 5.5L, Albumin 2.6L, Globulin 2.9, Albumin/Globulin Ratio 0.9L, Lipase 71L 12/20/16 05:14: White Blood Count 11.1H, Red Blood Count 4.55, Hemoglobin 14.5, Hematocrit 47.0 , Mean Corpuscular Volume 103H, Mean Corpuscular Hemoglobin 31.9H, Mean Corpuscular Hemoglobin Concent 30.9L, Red Cell Distribution Width 14.4, Platelet Count 239, Mean Platelet Volume 7.2, Neutrophils (%) (Auto) 79.1H, Lymphocytes (%) (Auto) 13.6L, Monocytes (%) (Auto) 6.8, Eosinophils (%) (Auto) 0.1, Basophils (%) (Auto) 0.4, Prothrombin Time 10.0, Prothromb Time International Ratio 1.0, Activated Partial Thromboplast Time 32, Sodium Level [ Pending], Potassium Level [Pending], Chloride Level [Pending], Carbon Dioxide Level [Pending], Blood Urea Nitrogen [Pending], Creatinine [Pending], Estimat Glomerular Filtration Rate [Pending], Glucose Level [Pending], Calcium Level [ Pending], Total Bilirubin [Pending], Aspartate Amino Transf (AST/SGOT) [Pending] , Alanine Aminotransferase (ALT/SGPT) [Pending], Alkaline Phosphatase [Pending] , Total Protein [Pending], Albumin [Pending], Globulin [Pending], Lipase [ Pending], Amylase Level [Pending] Current Medications Medications (Trade) Dose Ordered Sig/Sage Route PRN Reason Start Time Stop Time Status Last Admin Dose Admin Acetaminophen (Tylenol) 650 mg Q4H PRN ORAL fever 12/19/16 14:00 01/18/17 13:59 Acetaminophen/ Hydrocodone Bitart ([place] 5/325) 1 tab Q6H PRN ORAL Moderate Pain (Pain Scale 4-6) 12/20/16 09:00 12/27/16 08:59 UNV Al Hydroxide/Mg Hydroxide (Mylanta II) 30 ml Q6H PRN ORAL dyspepsia 12/19/16 14:00 01/18/17 13:59 Albuterol Sulfate (Proventil MDI) 2 puff EVERY 6 HOURS INH 12/19/16 18:00 01/18/17 17:59 12/20/16 07:20 Bupropion HCl (Wellbutrin XL) 300 mg DAILY ORAL 12/20/16 09:00 01/19/17 08:59 Carisoprodol (Soma) 350 mg QHS ORAL 12/19/16 21:00 01/18/17 20:59 12/19/16 20:23 Dextrose (Dextrose 50%) STAT PRN IV Hypoglycemia 12/19/16 14:00 01/18/17 13:59 Diphenhydramine HCl (Benadryl) 25 mg Q6H PRN ORAL Itching/Pruritis 12/19/16 14:00 01/18/17 13:59 Gabapentin (Neurontin) 600 mg BEDTIME ORAL 12/19/16 21:00 01/18/17 20:59 12/19/16 20:22 Hydralazine HCl (Apresoline) 25 mg EVERY 8 HOURS ORAL 12/19/16 15:45 01/18/17 15:44 12/19/16 23:53 Insulin Aspart (NovoLOG) BEFORE MEALS AND HS SUBQ 12/19/16 16:30 01/18/17 16:29 12/20/16 06:46 Losartan Potassium (Cozaar) 100 mg DAILY ORAL 12/20/16 09:00 01/19/17 08:59 Morphine Sulfate (Morphine Sulfate) 4 mg Q4H PRN IVP Severe Pain (Pain Scale 7-10) 12/20/16 12:30 12/27/16 12:29 UNV Nitroglycerin (Ntg) 0.4 mg Q5M X 3 DOSES PRN SL Prn Chest Pain 12/19/16 14:00 01/18/17 13:59 Ondansetron HCl (Zofran) 4 mg Q6H PRN IVP Nausea & Vomiting 12/19/16 14:00 01/18/17 13:59 Polyethylene Glycol (Miralax) 17 gm HSPRN PRN ORAL Constipation 12/19/16 14:00 01/18/17 13:59 Temazepam (Restoril) 15 mg HSPRN PRN ORAL Insomnia 12/19/16 14:00 12/26/16 13:59 Verapamil HCl (Calan SR) 240 mg DAILY ORAL 12/20/16 09:00 01/19/17 08:59 CHARIS RODAS Dec 20, 2016 08:55
[2016-12-20] MEDS ORDERED: Norco 5mg/325mg tab ORAL PRN (09:00)
[2016-12-20] MEDS: BuPROPion XL 300mg tab ORAL SCH (09:01)
[2016-12-20] MEDS: Verapamil SR 240mg tab ORAL SCH (09:02)
[2016-12-20] MEDS: Losartan 50mg tab ORAL SCH (09:03)
[2016-12-20] MEDS ORDERED: D5 1/2NS 1000ml IV ONE (09:49)
[2016-12-20 09:52] LABS: ALANINE AMINOTRANSFERASE 18 U/L (12-78); ALBUMIN/GLOBULIN RATIO 0.7 (1.0-2.7); AMYLASE 60 U/L (25-115); ANION GAP 12 mmol/L (5-15); ASPARTATE AMINO TRANSFERASE 20 U/L (15-37); CALCIUM 8.7 MG/DL (8.5-10.1); CARBON DIOXIDE 27 MMOL/L (21-32); CHLORIDE 98 MMOL/L (98-107); CREATININE 1.4 MG/DL (0.55-1.30); GLOMERULAR FILTRATION RATE 46.3 mL/min (>60); LIPASE 211 U/L (73-393); POTASSIUM 4.5 MMOL/L (3.5-5.1); SODIUM 137 MMOL/L (136-145); TOTAL PROTEIN 7.9 G/DL (6.4-8.2)
--- NOTE | 2016-12-20 09:59 | General Progress Note ---
Assessment/Plan Problem List: (1) Marijuana use ICD Codes: F12.90 - Cannabis use, unspecified, uncomplicated SNOMED: 472363394 (2) Cyclical vomiting ICD Codes: G43.A0 - Cyclical vomiting, not intractable SNOMED: 23631149 (3) Elevated lipase ICD Codes: R74.8 - Abnormal levels of other serum enzymes SNOMED: 274359675 (4) Diabetes mellitus ICD Codes: E11.9 - Type 2 diabetes mellitus without complications SNOMED: 00096849 Assessment/Plan laxatives stable labs pain control fu Subjective ROS Limited/Unobtainable: Yes Allergies: Coded Allergies: PENICILLINS (Verified Allergy, Severe, Anaphylaxis, 03/09/12) TOMATO (Verified Allergy, Severe, Anaphylaxis, 03/09/12) Kiwi (Verified Allergy, Intermediate, HIVES & UTACARIA, 03/09/12) IBUPROFEN (Unverified Allergy, Unknown, 08/02/16) INFLUENZA VIRUS VACCINES (Verified Allergy, Unknown, 12/20/16) Uncoded Allergies: PENICILLIN (Allergy, Unknown, 08/02/16) Subjective had a BM Objective Last 24 Hour Vital Signs Date Time Temp Pulse Resp B/P (MAP) Pulse Ox O2 Delivery O2 Flow Rate FiO2 12/20/16 09:13 97.4 99 22 148/85 97 Room Air 12/20/16 09:03 148/85 12/20/16 09:02 99 148/85 12/20/16 08:15 97.4 66 22 148/85 97 Room Air 12/20/16 07:21 93 18 98 Room Air 12/20/16 07:20 92 18 98 Room Air 21 12/20/16 05:51 112/89 12/20/16 04:12 98 12/20/16 04:00 98.2 121 20 112/89 96 Room Air 12/20/16 01:21 97 18 98 Room Air 12/20/16 01:18 97 18 98 Room Air 12/20/16 00:36 105 12/20/16 00:00 98.2 121 20 128/86 100 Room Air 12/19/16 23:53 128/86 12/19/16 20:01 110 20 98 Room Air 12/19/16 20:00 99.0 120 18 148/84 96 Room Air 12/19/16 19:59 109 20 98 Room Air 12/19/16 16:58 154/89 12/19/16 15:46 98.8 114 21 154/89 100 Room Air 12/19/16 15:00 97.8 84 16 165/95 96 Room Air 12/19/16 14:30 97.8 84 16 165/95 96 Room Air 12/19/16 13:48 189/100 12/19/16 13:30 97.8 88 16 187/100 95 Room Air 12/19/16 12:40 97.9 92 16 188/102 95 Room Air 12/19/16 12:17 97.6 12/19/16 11:10 97.5 97 16 204/107 94 Room Air Laboratory Tests 12/19/16 11:35: White Blood Count 13.7H, Red Blood Count 5.17, Hemoglobin 16.1H, Hematocrit 52.3H, Mean Corpuscular Volume 101H, Mean Corpuscular Hemoglobin 31.2H, Mean Corpuscular Hemoglobin Concent 30.8L, Red Cell Distribution Width 14.4, Platelet Count 279, Mean Platelet Volume 7.3, Neutrophils (%) (Auto) , Lymphocytes (%) (Auto) , Monocytes (%) (Auto) , Eosinophils (%) (Auto) , Basophils (%) (Auto) , Differential Total Cells Counted 100, Neutrophils % ( Manual) 89H, Lymphocytes % (Manual) 4L, Monocytes % (Manual) 6, Eosinophils % ( Manual) 1, Basophils % (Manual) 0, Band Neutrophils 0, Platelet Estimate Adequate, Platelet Morphology Normal, Prothrombin Time 9.9, Prothromb Time International Ratio 0.9, Activated Partial Thromboplast Time 30, Sodium Level 144, Potassium Level 2.9L, Chloride Level 110H, Carbon Dioxide Level 24, Anion Gap 10, Blood Urea Nitrogen 14, Creatinine 0.7, Estimat Glomerular Filtration Rate > 60, Glucose Level 190H, Calcium Level 6.3L, Total Bilirubin 0.6, Aspartate Amino Transf (AST/SGOT) 14L, Alanine Aminotransferase (ALT/SGPT) 15, Alkaline Phosphatase 59, Total Creatine Kinase 173, Creatine Kinase MB 6.9H, Creatine Kinase MB Relative Index 3.9, Troponin I 0.000, Pro-B-Type Natriuretic Peptide 76, Total Protein 5.5L, Albumin 2.6L, Globulin 2.9, Albumin/Globulin Ratio 0.9L, Lipase 71L 12/20/16 05:14: White Blood Count 11.1H, Red Blood Count 4.55, Hemoglobin 14.5, Hematocrit 47.0 , Mean Corpuscular Volume 103H, Mean Corpuscular Hemoglobin 31.9H, Mean Corpuscular Hemoglobin Concent 30.9L, Red Cell Distribution Width 14.4, Platelet Count 239, Mean Platelet Volume 7.2, Neutrophils (%) (Auto) 79.1H, Lymphocytes (%) (Auto) 13.6L, Monocytes (%) (Auto) 6.8, Eosinophils (%) (Auto) 0.1, Basophils (%) (Auto) 0.4, Prothrombin Time 10.0, Prothromb Time International Ratio 1.0, Activated Partial Thromboplast Time 32, Sodium Level 137, Potassium Level 4.5#, Chloride Level 98, Carbon Dioxide Level 27, Anion Gap 12, Blood Urea Nitrogen 22H, Creatinine 1.4#H, Estimat Glomerular Filtration Rate 46.3, Glucose Level 208H, Calcium Level 8.7#, Total Bilirubin 0.6, Aspartate Amino Transf (AST/SGOT) 20, Alanine Aminotransferase (ALT/SGPT) 18, Alkaline Phosphatase 81, Total Protein 7.9#, Albumin 3.3L, Globulin 4.6, Albumin/Globulin Ratio 0.7L, Lipase 211, Amylase Level 60 Height (Feet): 5 Height (Inches): 2.00 Weight (Pounds): 240 General Appearance: alert EENT: normal ENT inspection Neck: supple Cardiovascular: normal rate Respiratory/Chest: decreased breath sounds Abdomen: normal bowel sounds, non tender, soft Extremities: non-tender SILVIA LONGORIA Dec 20, 2016 09:59
--- NOTE | 2016-12-20 10:52 | Consultation ---
History of Present Illness General Date patient seen: Dec 20, 2016 Time patient seen: 11:36 Chief Complaint: Abdominal Pain Referring physician: CHARIS MOORE Reason for Consultation: GI BLEED Present Illness HPI 61 y/o F with hx of COPD, HTN presents to ED on 12/19 with 2-3days of vomiting ( non bilious, non bloody) and diarrhea with fresh blood in stools, diffuse abd cramping and chills. Also increased SOB, generalized weakness. CT in ED showed acute sigmoid diverticulitis. Found to have leukocytosis, hypoK, elevated lipase. Denies fevers, recent travel, dysuria, frequency Allergies: Coded Allergies: PENICILLINS (Verified Allergy, Severe, Anaphylaxis, 03/09/12) TOMATO (Verified Allergy, Severe, Anaphylaxis, 03/09/12) Kiwi (Verified Allergy, Intermediate, HIVES & UTACARIA, 03/09/12) IBUPROFEN (Unverified Allergy, Unknown, 08/02/16) INFLUENZA VIRUS VACCINES (Verified Allergy, Unknown, 12/20/16) Uncoded Allergies: PENICILLIN (Allergy, Unknown, 08/02/16) Medication History Scheduled Acetaminophen/Codeine 300MG/30MG* (Tylenol #3*), 1 TAB PO Q4H, (Reported) Albuterol Sulfate (Ventolin Hfa), 2 PUFFS INH EVERY 6 HOURS, (Reported) Aspirin* (Aspir 81*), 81 MG ORAL DAILY, (Reported) Beclomethasone Dipropionate 40MCG Oral Inh (Qvar 40*), 1 PUFF INH TWICE A DAY, ( Reported) Bupropion Hcl* (Bupropion Hcl*), 300 MG PO DAILY, (Reported) Carisoprodol* (Carisoprodol*), 350 MG PO QHS, (Reported) Cephalexin* (Keflex*), 500 MG ORAL EVERY 12 HOURS Clonidine Hcl* (Catapres*), 0.2 MG ORAL BID, (Reported) Enalapril Maleate* (Enalapril Maleate*), 10 MG PO Q12HR, (Reported) Gabapentin* (Gabapentin*), 300 MG ORAL DAILY, (Reported) Gabapentin* (Gabapentin*), 600 MG ORAL BEDTIME, (Reported) Hydralazine Hcl* (Hydralazine Hcl*), 25 MG ORAL EVERY 8 HOURS, (Reported) Insulin Human Lispro (Humalog), 35 SUBQ BID, (Reported) Loratadine (Loratadine), 10 MG PO DAILY, (Reported) Losartan Potassium* (Losartan Potassium*), 100 MG ORAL DAILY, (Reported) Omeprazole (Prilosec), 20 MG PO DAILY, (Reported) Sitagliptin* (Januvia*), 100 MG ORAL DAILY, (Reported) Temazepam* (Restoril*), 15 MG PO QHS, (Reported) Verapamil Hcl* (Calan Sr*), 240 MG PO DAILY, (Reported) [Lithobid], 300 MG PO DAILY, (Reported) Scheduled PRN Acetaminophen With Codeine (T#3) (Tylenol #3 Tab*), 1 TAB ORAL Q8H PRN for For Pain Hydrocodone Bit/Acetaminophen 5-325* ([place] 5-325*), 1 TAB ORAL Q6H PRN for For Pain Ibuprofen* (Motrin*), 600 MG ORAL Q8H PRN for For Pain Methocarbamol* (Methocarbamol*), 500 MG ORAL QID PRN for For Pain, (Reported) Miscellaneous Medications Insulin Npl/Insulin Lispro (Humalog Mix 75-25 Vial), 0 SQ, (Reported) Patient History Healthcare decision maker Resuscitation status Full Code Advanced Directive on File Patient History Narrative Pmhx: as above Shx: tobacco and marijuana use since childhood. Denies ETOH use. Fhx non contributory Review of Systems ROS Narrative as per HPI, otherwise negative Physical Exam Physical Exam Narrative General Appearance: WD/WN Lines, tubes and drains: peripheral HEENT: normocephalic, atraumatic Neck: non-tender, normal alignment Respiratory/Chest: chest wall non-tender, lungs clear Breasts: no masses Cardiovascular/Chest: normal peripheral pulses Abdomen: normal bowel sounds, mild LLQ TTP Extremities: normal range of motion Neurologic: robotics technician II-XII grossly normal Last 24 Hour Vital Signs Date Time Temp Pulse Resp B/P (MAP) Pulse Ox O2 Delivery O2 Flow Rate FiO2 12/20/16 09:13 97.4 99 22 148/85 97 Room Air 12/20/16 09:03 148/85 12/20/16 09:02 99 148/85 12/20/16 08:15 97.4 66 22 148/85 97 Room Air 12/20/16 07:21 93 18 98 Room Air 12/20/16 07:20 92 18 98 Room Air 21 12/20/16 05:51 112/89 12/20/16 04:12 98 12/20/16 04:00 98.2 121 20 112/89 96 Room Air 12/20/16 01:21 97 18 98 Room Air 12/20/16 01:18 97 18 98 Room Air 12/20/16 00:36 105 12/20/16 00:00 98.2 121 20 128/86 100 Room Air 12/19/16 23:53 128/86 12/19/16 20:01 110 20 98 Room Air 12/19/16 20:00 99.0 120 18 148/84 96 Room Air 12/19/16 19:59 109 20 98 Room Air 12/19/16 16:58 154/89 12/19/16 15:46 98.8 114 21 154/89 100 Room Air 12/19/16 15:00 97.8 84 16 165/95 96 Room Air 12/19/16 14:30 97.8 84 16 165/95 96 Room Air 12/19/16 13:48 189/100 12/19/16 13:30 97.8 88 16 187/100 95 Room Air 12/19/16 12:40 97.9 92 16 188/102 95 Room Air 12/19/16 12:17 97.6 12/19/16 11:10 97.5 97 16 204/107 94 Room Air Laboratory Tests Test 12/19/16 11:35 12/20/16 05:14 White Blood Count 13.7 K/UL (4.8-10.8) H 11.1 K/UL (4.8-10.8) H Red Blood Count 5.17 M/UL (4.20-5.40) 4.55 M/UL (4.20-5.40) Hemoglobin 16.1 G/DL (12.0-16.0) H 14.5 G/DL (12.0-16.0) Hematocrit 52.3 % (37.0-47.0) H 47.0 % (37.0-47.0) Mean Corpuscular Volume 101 FL (80-99) H 103 FL (80-99) H Mean Corpuscular Hemoglobin 31.2 PG (27.0-31.0) H 31.9 PG (27.0-31.0) H Mean Corpuscular Hemoglobin Concent 30.8 G/DL (32.0-36.0) L 30.9 G/DL (32.0-36.0) L Red Cell Distribution Width 14.4 % (11.6-14.8) 14.4 % (11.6-14.8) Platelet Count 279 K/UL (150-450) 239 K/UL (150-450) Mean Platelet Volume 7.3 FL (6.5-10.1) 7.2 FL (6.5-10.1) Neutrophils (%) (Auto) % (45.0-75.0) 79.1 % (45.0-75.0) H Lymphocytes (%) (Auto) % (20.0-45.0) 13.6 % (20.0-45.0) L Monocytes (%) (Auto) % (1.0-10.0) 6.8 % (1.0-10.0) Eosinophils (%) (Auto) % (0.0-3.0) 0.1 % (0.0-3.0) Basophils (%) (Auto) % (0.0-2.0) 0.4 % (0.0-2.0) Differential Total Cells Counted 100 Neutrophils % (Manual) 89 % (45-75) H Lymphocytes % (Manual) 4 % (20-45) L Monocytes % (Manual) 6 % (1-10) Eosinophils % (Manual) 1 % (0-3) Basophils % (Manual) 0 % (0-2) Band Neutrophils 0 % (0-8) Platelet Estimate Adequate Platelet Morphology Normal Prothrombin Time 9.9 SEC (9.30-11.50) 10.0 SEC (9.30-11.50) Prothromb Time International Ratio 0.9 (0.9-1.1) 1.0 (0.9-1.1) Activated Partial Thromboplast Time 30 SEC (23-33) 32 SEC (23-33) Sodium Level 144 MMOL/L (136-145) 137 MMOL/L (136-145) Potassium Level 2.9 MMOL/L (3.5-5.1) L 4.5 MMOL/L (3.5-5.1) # Chloride Level 110 MMOL/L (98-107) H 98 MMOL/L (98-107) Carbon Dioxide Level 24 MMOL/L (21-32) 27 MMOL/L (21-32) Anion Gap 10 mmol/L (5-15) 12 mmol/L (5-15) Blood Urea Nitrogen 14 mg/dL (7-18) 22 mg/dL (7-18) H Creatinine 0.7 MG/DL (0.55-1.30) 1.4 MG/DL (0.55-1.30) #H Estimat Glomerular Filtration Rate > 60 mL/min (>60) 46.3 mL/min (>60) Glucose Level 190 MG/DL (74-106) H 208 MG/DL (74-106) H Calcium Level 6.3 MG/DL (8.5-10.1) L 8.7 MG/DL (8.5-10.1) # Total Bilirubin 0.6 MG/DL (0.2-1.0) 0.6 MG/DL (0.2-1.0) Aspartate Amino Transf (AST/SGOT) 14 U/L (15-37) L 20 U/L (15-37) Alanine Aminotransferase (ALT/SGPT) 15 U/L (12-78) 18 U/L (12-78) Alkaline Phosphatase 59 U/L (46-116) 81 U/L (46-116) Total Creatine Kinase 173 U/L (26-308) Creatine Kinase MB 6.9 NG/ML (0.0-3.6) H Creatine Kinase MB Relative Index 3.9 Troponin I 0.000 ng/mL (0.000-0.056) Pro-B-Type Natriuretic Peptide 76 pg/mL (0-125) Total Protein 5.5 G/DL (6.4-8.2) L 7.9 G/DL (6.4-8.2) # Albumin 2.6 G/DL (3.4-5.0) L 3.3 G/DL (3.4-5.0) L Globulin 2.9 g/dL 4.6 g/dL Albumin/Globulin Ratio 0.9 (1.0-2.7) L 0.7 (1.0-2.7) L Lipase 71 U/L (73-393) L 211 U/L (73-393) Amylase Level 60 U/L (25-115) Height (Feet): 5 Height (Inches): 2.00 Weight (Pounds): 240 Medications Current Medications Medications (Trade) Dose Ordered Sig/Sage Route PRN Reason Start Time Stop Time Status Last Admin Dose Admin Acetaminophen (Tylenol) 650 mg Q4H PRN ORAL fever 12/19/16 14:00 01/18/17 13:59 Acetaminophen/ Hydrocodone Bitart ([place]ier[place] 5/325) 1 tab Q6H PRN ORAL Moderate Pain (Pain Scale 4-6) 12/20/16 09:00 12/27/16 08:59 12/20/16 09:01 Al Hydroxide/Mg Hydroxide (Mylanta II) 30 ml Q6H PRN ORAL dyspepsia 12/19/16 14:00 01/18/17 13:59 Albuterol Sulfate (Proventil MDI) 2 puff EVERY 6 HOURS INH 12/19/16 18:00 01/18/17 17:59 12/20/16 07:20 Bupropion HCl (Wellbutrin XL) 300 mg DAILY ORAL 12/20/16 09:00 01/19/17 08:59 12/20/16 09:01 Carisoprodol (Soma) 350 mg QHS ORAL 12/19/16 21:00 01/18/17 20:59 12/19/16 20:23 Dextrose (Dextrose 50%) STAT PRN IV Hypoglycemia 12/19/16 14:00 01/18/17 13:59 Diphenhydramine HCl (Benadryl) 25 mg Q6H PRN ORAL Itching/Pruritis 12/19/16 14:00 01/18/17 13:59 Docusate Sodium (Colace) 100 mg TWICE A DAY ORAL 12/20/16 18:00 01/19/17 17:59 Gabapentin (Neurontin) 600 mg BEDTIME ORAL 12/19/16 21:00 01/18/17 20:59 12/19/16 20:22 Hydralazine HCl (Apresoline) 25 mg EVERY 8 HOURS ORAL 12/19/16 15:45 01/18/17 15:44 12/19/16 23:53 Insulin Aspart (NovoLOG) BEFORE MEALS AND HS SUBQ 12/19/16 16:30 01/18/17 16:29 12/20/16 06:46 Losartan Potassium (Cozaar) 100 mg DAILY ORAL 12/20/16 09:00 01/19/17 08:59 12/20/16 09:03 Morphine Sulfate (Morphine Sulfate) 4 mg Q4H PRN IVP Severe Pain (Pain Scale 7-10) 12/20/16 12:30 12/27/16 12:29 Nitroglycerin (Ntg) 0.4 mg Q5M X 3 DOSES PRN SL Prn Chest Pain 12/19/16 14:00 01/18/17 13:59 Ondansetron HCl (Zofran) 4 mg Q6H PRN IVP Nausea & Vomiting 12/19/16 14:00 01/18/17 13:59 Polyethylene Glycol (Miralax) 17 gm BEDTIME ORAL 12/20/16 21:00 01/19/17 20:59 Polyethylene Glycol (Miralax) 17 gm HSPRN PRN ORAL Constipation 12/19/16 14:00 01/18/17 13:59 Temazepam (Restoril) 15 mg HSPRN PRN ORAL Insomnia 12/19/16 14:00 12/26/16 13:59 Verapamil HCl (Calan SR) 240 mg DAILY ORAL 12/20/16 09:00 01/19/17 08:59 12/20/16 09:02 Assessment/Plan Assessment/Plan Abx: Levo x1 12/19 Flagyl x1 12/19 Assesment: Acute sigmoid diverticulitis -CT abd/p: Acute sigmoid diverticulitis. Atherosclerotic disease. 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 Leukocytosis- 2ry to above; improving -afebrile -CXR: CHF/interstitial edema JORY, worsening COPD HTN PNC allergy (severe- anaphylaxis) Plan: -Start IV Aztreonam and flagyl for diverticulitis abx d#2/7-10; upon discharge cipro + flagyl -f/u stool cx and Cdiff -if T>101, obtain 2 sets of Bcx -Monitor CBC/BMP, temperatures Thank you for this consultation. Will continue to follow along with you. Discussed with Johanny Frederick M.D. Dec 20, 2016 10:52
[2016-12-20] MEDS ORDERED: Aztreonam Inj 2 GM in D5W 110 ML IVPB SCH (14:00)
[2016-12-20] MEDS: Norco 5mg/325mg tab ORAL PRN (14:50)
[2016-12-20] MEDS: metroNIDAZOLE 500mg tab ORAL SCH ×2 (14:50→22:15)
[2016-12-20] MEDS: Aztreonam 1gm/D5W 55ml IVPB SCH ×4 (14:51→22:15)
[2016-12-20] MEDS: Docusate 100mg cap ORAL SCH (17:38)
[2016-12-20] MEDS: Miralax 17gm pkt ORAL SCH (21:00)
[2016-12-21] VITALS (7 sets, daily range): BP systolic 115–143; BP diastolic 60–86
--- NOTE | 2016-12-21 06:14 | General Progress Note ---
Assessment/Plan Problem List: (1) Marijuana use ICD Codes: F12.90 - Cannabis use, unspecified, uncomplicated SNOMED: 081229025 (2) Cyclical vomiting ICD Codes: G43.A0 - Cyclical vomiting, not intractable SNOMED: 83614347 (3) Elevated lipase ICD Codes: R74.8 - Abnormal levels of other serum enzymes SNOMED: 431251323 (4) Diabetes mellitus ICD Codes: E11.9 - Type 2 diabetes mellitus without complications SNOMED: 33465254 Assessment/Plan laxatives stable labs pain control fu H&H hold GI procedures for now Subjective ROS Limited/Unobtainable: Yes Allergies: Coded Allergies: PENICILLINS (Verified Allergy, Severe, Anaphylaxis, 03/09/12) TOMATO (Verified Allergy, Severe, Anaphylaxis, 03/09/12) Kiwi (Verified Allergy, Intermediate, HIVES & UTACARIA, 03/09/12) IBUPROFEN (Unverified Allergy, Unknown, 08/02/16) INFLUENZA VIRUS VACCINES (Verified Allergy, Unknown, 12/20/16) Uncoded Allergies: PENICILLIN (Allergy, Unknown, 08/02/16) Subjective had a BM per patietn bloody BM but nurses has not seen it Objective Last 24 Hour Vital Signs Date Time Temp Pulse Resp B/P (MAP) Pulse Ox O2 Delivery O2 Flow Rate FiO2 12/21/16 04:00 97.7 99 18 122/74 100 Room Air 12/21/16 01:24 Room Air 12/21/16 01:24 Room Air 12/21/16 00:00 98.1 96 21 143/86 98 Room Air 12/20/16 22:16 127/68 12/20/16 21:00 99.5 91 21 127/68 98 Room Air 12/20/16 20:00 99.5 91 21 127/68 98 Room Air 12/20/16 19:23 90 20 95 Room Air 12/20/16 19:20 89 20 95 Room Air 12/20/16 16:00 99.0 100 18 123/67 100 Room Air 12/20/16 14:50 128/71 12/20/16 14:01 92 18 100 Room Air 12/20/16 14:00 93 18 100 Room Air 12/20/16 13:07 96.9 100 21 128/71 96 Room Air 12/20/16 09:13 97.4 99 22 148/85 97 Room Air 12/20/16 09:03 148/85 12/20/16 09:02 99 148/85 12/20/16 08:15 97.4 66 22 148/85 97 Room Air 12/20/16 07:21 93 18 98 Room Air 12/20/16 07:20 92 18 98 Room Air 21 Laboratory Tests 12/20/16 18:00: Stool Occult Blood [Pending] Height (Feet): 5 Height (Inches): 2.00 Weight (Pounds): 240 General Appearance: alert EENT: normal ENT inspection Neck: supple Cardiovascular: normal rate Respiratory/Chest: lungs clear Abdomen: normal bowel sounds, non tender, soft Extremities: non-tender SILVIA LONGORIA Dec 21, 2016 06:14
[2016-12-21] MEDS: metroNIDAZOLE 500mg tab ORAL SCH ×3 (06:29→21:50)
[2016-12-21] MEDS: HydrALAZINE 25mg tab ORAL SCH ×3 (06:30→21:50)
[2016-12-21] MEDS: Aztreonam 1gm/D5W 55ml IVPB SCH ×6 (06:31→21:50)
[2016-12-21] MEDS: NovoLOG Insulin Flexpen SUBQ SCH ×4 (06:41→20:42)
[2016-12-21 08:11] LABS: BASOPHILS % (AUTO) 0.6 % (0.0-2.0); EOSINOPHILS % (AUTO) 1.4 % (0.0-3.0); LYMPHOCYTES % (AUTO) 20.9 % (20.0-45.0); MEAN CORPUSCULAR HGB CONC 30.6 G/DL (32.0-36.0); MEAN CORPUSCULAR VOLUME 104 FL (80-99); MEAN PLATELET VOLUME 7.6 FL (6.5-10.1); MONOCYTES % (AUTO) 8.7 % (1.0-10.0); NEUTROPHILS % (AUTO) 68.4 % (45.0-75.0); PLATELET COUNT 242 K/UL (150-450); RED BLOOD COUNT 4.48 M/UL (4.20-5.40); RED CELL DISTRIBUTION WIDTH 14.8 % (11.6-14.8); WHITE BLOOD COUNT 9.4 K/UL (4.8-10.8)
[2016-12-21] MEDS: Albuterol 90mcg Inhaler 8gm INH SCH ×3 (08:17→19:44)
[2016-12-21 08:30] LABS: ALANINE AMINOTRANSFERASE 19 U/L (12-78); ALBUMIN/GLOBULIN RATIO 0.7 (1.0-2.7); ANION GAP 5 mmol/L (5-15); ASPARTATE AMINO TRANSFERASE 19 U/L (15-37); CARBON DIOXIDE 31 MMOL/L (21-32); CHLORIDE 100 MMOL/L (98-107); CREATININE 1.4 MG/DL (0.55-1.30); GLOMERULAR FILTRATION RATE 46.3 mL/min (>60); POTASSIUM 4.5 MMOL/L (3.5-5.1); SODIUM 136 MMOL/L (136-145); TOTAL PROTEIN 7.8 G/DL (6.4-8.2)
[2016-12-21] MEDS: Docusate 100mg cap ORAL SCH ×2 (08:37→18:10)
[2016-12-21] MEDS: Norco 5mg/325mg tab ORAL PRN ×3 (08:37→14:42)
[2016-12-21] MEDS: BuPROPion XL 300mg tab ORAL SCH (08:37)
[2016-12-21] MEDS: Losartan 50mg tab ORAL SCH (08:38)
[2016-12-21] MEDS: Verapamil SR 240mg tab ORAL SCH (08:38)
--- NOTE | 2016-12-21 14:07 | Infectious Diseases Prog Note ---
Assessment/Plan Assessment/Plan A; Sigmoid diverticulitis Lower GI bleeding Acute renal failure Morbid obesity DM P: Continue Azactam & Flagyl Subjective ROS Limited/Unobtainable: No Constitutional: Reports: no symptoms Respiratory: Reports: no symptoms Cardiovascular: Reports: no symptoms Gastrointestinal/Abdominal: Reports: blood in stool, other - mild lower abdominal pain Genitourinary: Reports: no symptoms Allergies: Coded Allergies: PENICILLINS (Verified Allergy, Severe, Anaphylaxis, 03/09/12) TOMATO (Verified Allergy, Severe, Anaphylaxis, 03/09/12) Kiwi (Verified Allergy, Intermediate, HIVES & UTACARIA, 03/09/12) IBUPROFEN (Unverified Allergy, Unknown, 08/02/16) INFLUENZA VIRUS VACCINES (Verified Allergy, Unknown, 12/20/16) Uncoded Allergies: PENICILLIN (Allergy, Unknown, 08/02/16) Objective Vital Signs Last 24 Hour Vital Signs Date Time Temp Pulse Resp B/P (MAP) Pulse Ox O2 Delivery O2 Flow Rate FiO2 12/21/16 12:15 97.7 95 23 116/67 94 Room Air 12/21/16 08:38 79 131/60 12/21/16 08:38 131/60 12/21/16 07:59 97.9 79 20 131/60 97 Room Air 12/21/16 07:10 99 20 96 Room Air 12/21/16 07:05 102 20 100 Room Air 12/21/16 06:30 122/74 12/21/16 04:00 97.7 99 18 122/74 100 Room Air 12/21/16 01:24 Room Air 12/21/16 01:24 Room Air 12/21/16 00:00 98.1 96 21 143/86 98 Room Air 12/20/16 22:16 127/68 12/20/16 21:00 99.5 91 21 127/68 98 Room Air 12/20/16 20:00 99.5 91 21 127/68 98 Room Air 12/20/16 19:23 90 20 95 Room Air 12/20/16 19:20 89 20 95 Room Air 21 12/20/16 16:00 99.0 100 18 123/67 100 Room Air 12/20/16 14:50 128/71 Height (Feet): 5 Height (Inches): 2.00 Weight (Pounds): 240 General Appearance: no acute distress, other - obese Respiratory/Chest: lungs clear Cardiovascular: normal rate Abdomen: soft, non tender Extremities: no edema Neurologic/Psychiatric: alert, oriented x 3, responsive Microbiology Date/Time Source Procedure Growth Status 12/20/16 18:00 Stool Stool Culture Pending Resulted 12/20/16 18:00 Stool Clostridium difficile Toxin Assay - Final Resulted Laboratory Tests Test 12/20/16 18:00 12/21/16 05:29 Stool Occult Blood Positive (NEGATIVE) White Blood Count 9.4 K/UL (4.8-10.8) Red Blood Count 4.48 M/UL (4.20-5.40) Hemoglobin 14.3 G/DL (12.0-16.0) Hematocrit 46.8 % (37.0-47.0) Mean Corpuscular Volume 104 FL (80-99) H Mean Corpuscular Hemoglobin 32.0 PG (27.0-31.0) H Mean Corpuscular Hemoglobin Concent 30.6 G/DL (32.0-36.0) L Red Cell Distribution Width 14.8 % (11.6-14.8) Platelet Count 242 K/UL (150-450) Mean Platelet Volume 7.6 FL (6.5-10.1) Neutrophils (%) (Auto) 68.4 % (45.0-75.0) Lymphocytes (%) (Auto) 20.9 % (20.0-45.0) Monocytes (%) (Auto) 8.7 % (1.0-10.0) Eosinophils (%) (Auto) 1.4 % (0.0-3.0) Basophils (%) (Auto) 0.6 % (0.0-2.0) Sodium Level 136 MMOL/L (136-145) Potassium Level 4.5 MMOL/L (3.5-5.1) Chloride Level 100 MMOL/L (98-107) Carbon Dioxide Level 31 MMOL/L (21-32) Anion Gap 5 mmol/L (5-15) Blood Urea Nitrogen 27 mg/dL (7-18) H Creatinine 1.4 MG/DL (0.55-1.30) H Estimat Glomerular Filtration Rate 46.3 mL/min (>60) Glucose Level 254 MG/DL (74-106) H Calcium Level 9.0 MG/DL (8.5-10.1) Phosphorus Level 4.0 MG/DL (2.5-4.9) Magnesium Level 2.0 MG/DL (1.8-2.4) Total Bilirubin 0.4 MG/DL (0.2-1.0) Aspartate Amino Transf (AST/SGOT) 19 U/L (15-37) Alanine Aminotransferase (ALT/SGPT) 19 U/L (12-78) Alkaline Phosphatase 82 U/L (46-116) Total Protein 7.8 G/DL (6.4-8.2) Albumin 3.2 G/DL (3.4-5.0) L Globulin 4.6 g/dL Albumin/Globulin Ratio 0.7 (1.0-2.7) L Current Medications Medications (Trade) Dose Ordered Sig/Sage Route PRN Reason Start Time Stop Time Status Last Admin Dose Admin Acetaminophen (Tylenol) 650 mg Q4H PRN ORAL fever 12/19/16 14:00 01/18/17 13:59 Acetaminophen/ Hydrocodone Bitart ([place] 5/325) 1 tab Q4HR PRN ORAL Moderate Pain (Pain Scale 4-6) 12/20/16 14:30 12/27/16 08:59 12/21/16 08:37 Al Hydroxide/Mg Hydroxide (Mylanta II) 30 ml Q6H PRN ORAL dyspepsia 12/19/16 14:00 01/18/17 13:59 Albuterol Sulfate (Proventil MDI) 2 puff EVERY 6 HOURS INH 12/19/16 18:00 01/18/17 17:59 12/21/16 08:17 Aztreonam 1 gm/ Dextrose 55 ml @ 110 mls/hr EVERY 8 HOURS IVPB 12/20/16 14:00 12/27/16 13:59 12/21/16 06:31 Bupropion HCl (Wellbutrin XL) 300 mg DAILY ORAL 12/20/16 09:00 01/19/17 08:59 12/21/16 08:37 Carisoprodol (Soma) 350 mg QHS ORAL 12/19/16 21:00 01/18/17 20:59 12/20/16 21:02 Dextrose (Dextrose 50%) STAT PRN IV Hypoglycemia 12/19/16 14:00 01/18/17 13:59 Diphenhydramine HCl (Benadryl) 25 mg Q6H PRN ORAL Itching/Pruritis 12/19/16 14:00 01/18/17 13:59 Docusate Sodium (Colace) 100 mg TWICE A DAY ORAL 12/20/16 18:00 01/19/17 17:59 12/21/16 08:37 Gabapentin (Neurontin) 600 mg BEDTIME ORAL 12/19/16 21:00 01/18/17 20:59 12/20/16 21:00 Hydralazine HCl (Apresoline) 25 mg EVERY 8 HOURS ORAL 12/19/16 15:45 01/18/17 15:44 12/21/16 06:30 Insulin Aspart (NovoLOG) BEFORE MEALS AND HS SUBQ 12/19/16 16:30 01/18/17 16:29 12/21/16 11:57 Losartan Potassium (Cozaar) 100 mg DAILY ORAL 12/20/16 09:00 01/19/17 08:59 12/21/16 08:38 Metronidazole (Flagyl) 500 mg Q8HR ORAL 12/20/16 14:00 12/27/16 13:59 12/21/16 06:29 Morphine Sulfate (Morphine Sulfate) 4 mg Q4H PRN IVP Severe Pain (Pain Scale 7-10) 12/20/16 12:30 12/27/16 12:29 Nitroglycerin (Ntg) 0.4 mg Q5M X 3 DOSES PRN SL Prn Chest Pain 12/19/16 14:00 01/18/17 13:59 Ondansetron HCl (Zofran) 4 mg Q6H PRN IVP Nausea & Vomiting 12/19/16 14:00 01/18/17 13:59 Polyethylene Glycol (Miralax) 17 gm BEDTIME ORAL 12/20/16 21:00 01/19/17 20:59 12/20/16 21:00 Polyethylene Glycol (Miralax) 17 gm HSPRN PRN ORAL Constipation 12/19/16 14:00 01/18/17 13:59 Temazepam (Restoril) 15 mg HSPRN PRN ORAL Insomnia 12/19/16 14:00 12/26/16 13:59 Verapamil HCl (Calan SR) 240 mg DAILY ORAL 12/20/16 09:00 01/19/17 08:59 12/21/16 08:38 ED CASTRO Dec 21, 2016 14:07
[2016-12-21] MEDS ORDERED: Tubing IV Secondary IV ONE (15:47)
[2016-12-21] MEDS ORDERED: NS 275ml ONE (15:47)
[2016-12-21] MEDS: Miralax 17gm pkt ORAL SCH (20:37)
[2016-12-22] VITALS (7 sets, daily range): BP systolic 108–135; BP diastolic 67–83
[2016-12-22] MEDS: Albuterol 90mcg Inhaler 8gm INH SCH ×4 (01:18→18:00)
[2016-12-22] MEDS: sitaGLIPtin 25mg tab ORAL SCH (05:59)
[2016-12-22] MEDS: metroNIDAZOLE 500mg tab ORAL SCH ×3 (05:59→20:31)
[2016-12-22] MEDS: HydrALAZINE 25mg tab ORAL SCH ×3 (06:00→20:30)
[2016-12-22] MEDS: Aztreonam 1gm/D5W 55ml IVPB SCH ×2 (06:01)
[2016-12-22] MEDS: NovoLOG Insulin Flexpen SUBQ SCH ×5 (06:04→20:36)
[2016-12-22 07:11] LABS: BASOPHILS % (AUTO) 0.8 % (0.0-2.0); EOSINOPHILS % (AUTO) 0.9 % (0.0-3.0); LYMPHOCYTES % (AUTO) 16.6 % (20.0-45.0); MEAN CORPUSCULAR HEMOGLOBIN 31.7 PG (27.0-31.0); MEAN CORPUSCULAR HGB CONC 30.5 G/DL (32.0-36.0); MEAN CORPUSCULAR VOLUME 104 FL (80-99); MONOCYTES % (AUTO) 7.4 % (1.0-10.0); NEUTROPHILS % (AUTO) 74.3 % (45.0-75.0); PLATELET COUNT 274 K/UL (150-450); RED CELL DISTRIBUTION WIDTH 14.8 % (11.6-14.8); WHITE BLOOD COUNT 8.4 K/UL (4.8-10.8)
[2016-12-22 07:37] LABS: ALANINE AMINOTRANSFERASE 18 U/L (12-78); ALBUMIN/GLOBULIN RATIO 0.8 (1.0-2.7); ANION GAP 3 mmol/L (5-15); ASPARTATE AMINO TRANSFERASE 12 U/L (15-37); CALCIUM 8.9 MG/DL (8.5-10.1); CARBON DIOXIDE 32 MMOL/L (21-32); CHLORIDE 101 MMOL/L (98-107); CREATININE 1.4 MG/DL (0.55-1.30); CRP QUANT 4.6 mg/dL (0.00-0.90); GLOMERULAR FILTRATION RATE 46.3 mL/min (>60); MAGNESIUM 1.9 MG/DL (1.8-2.4); PHOSPHORUS 3.7 MG/DL (2.5-4.9); SODIUM 136 MMOL/L (136-145); TOTAL PROTEIN 7.6 G/DL (6.4-8.2)
[2016-12-22 08:55] LABS: ERYTHROCYTE SEDIMENTATION RATE 15 MM/HR (0-30)
[2016-12-22] MEDS: Docusate 100mg cap ORAL SCH ×2 (09:01→17:08)
[2016-12-22] MEDS: Verapamil SR 240mg tab ORAL SCH (09:01)
[2016-12-22] MEDS: BuPROPion XL 300mg tab ORAL SCH (09:01)
[2016-12-22] MEDS: Losartan 50mg tab ORAL SCH (09:01)
--- NOTE | 2016-12-22 10:41 | Infectious Diseases Prog Note ---
Assessment/Plan Assessment/Plan Assesment: Acute sigmoid diverticulitis - abd pain improving -CT abd/p: Acute sigmoid diverticulitis. Atherosclerotic disease. 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 Leukocytosis- SP Afebrile Bronchitis -CXR: CHF/interstitial edema JORY COPD HTN PNC allergy (severe- anaphylaxis) Plan: cont flagyl and Change Azactam to levaquin ( abx RX d# / ) upon discharge will change to Levaquin + Flagyl Po -Monitor CBC/BMP, temperatures monitor Cxray SCx Subjective Allergies: Coded Allergies: PENICILLINS (Verified Allergy, Severe, Anaphylaxis, 03/09/12) TOMATO (Verified Allergy, Severe, Anaphylaxis, 03/09/12) Kiwi (Verified Allergy, Intermediate, HIVES & UTACARIA, 03/09/12) IBUPROFEN (Unverified Allergy, Unknown, 08/02/16) INFLUENZA VIRUS VACCINES (Verified Allergy, Unknown, 12/20/16) Uncoded Allergies: PENICILLIN (Allergy, Unknown, 08/02/16) Subjective lower abd pain is improving , cough ++ Objective Vital Signs Last 24 Hour Vital Signs Date Time Temp Pulse Resp B/P (MAP) Pulse Ox O2 Delivery O2 Flow Rate FiO2 12/22/16 09:01 104 108/79 12/22/16 09:01 108/79 12/22/16 08:00 99.3 104 18 108/79 100 Room Air 12/22/16 07:51 95 18 96 Room Air 12/22/16 07:50 95 20 96 Room Air 12/22/16 06:00 130/79 12/22/16 03:50 97.4 101 18 130/79 96 Room Air 12/22/16 01:19 91 18 97 Room Air 12/22/16 01:17 91 20 97 Room Air 12/22/16 00:00 97.5 100 20 111/67 97 Room Air 12/21/16 21:50 125/70 12/21/16 21:00 97.5 55 20 125/70 100 Room Air 12/21/16 20:00 97.5 55 20 125/70 100 Room Air 12/21/16 19:46 100 18 96 Room Air 12/21/16 19:44 98 20 96 Room Air 12/21/16 16:24 97.9 79 20 115/67 98 Room Air 12/21/16 14:41 130/72 12/21/16 13:12 103 20 96 Room Air 12/21/16 13:10 97 20 95 Room Air 21 12/21/16 12:15 97.7 95 23 116/67 94 Room Air Height (Feet): 5 Height (Inches): 2.00 Weight (Pounds): 240 HEENT: anicteric Respiratory/Chest: no respiratory distress Cardiovascular: no gallop/murmur Abdomen: no organomegaly, tender - mild lower abd Microbiology Date/Time Source Procedure Growth Status 12/20/16 18:00 Stool Stool Culture Pending Resulted 12/20/16 18:00 Stool Clostridium difficile Toxin Assay - Final Resulted Laboratory Tests Test 12/22/16 04:35 White Blood Count 8.4 K/UL (4.8-10.8) Red Blood Count 4.20 M/UL (4.20-5.40) Hemoglobin 13.3 G/DL (12.0-16.0) Hematocrit 43.7 % (37.0-47.0) Mean Corpuscular Volume 104 FL (80-99) H Mean Corpuscular Hemoglobin 31.7 PG (27.0-31.0) H Mean Corpuscular Hemoglobin Concent 30.5 G/DL (32.0-36.0) L Red Cell Distribution Width 14.8 % (11.6-14.8) Platelet Count 274 K/UL (150-450) Mean Platelet Volume 8.0 FL (6.5-10.1) Neutrophils (%) (Auto) 74.3 % (45.0-75.0) Lymphocytes (%) (Auto) 16.6 % (20.0-45.0) L Monocytes (%) (Auto) 7.4 % (1.0-10.0) Eosinophils (%) (Auto) 0.9 % (0.0-3.0) Basophils (%) (Auto) 0.8 % (0.0-2.0) Erythrocyte Sedimentation Rate 15 MM/HR (0-30) Sodium Level 136 MMOL/L (136-145) Potassium Level 5.0 MMOL/L (3.5-5.1) Chloride Level 101 MMOL/L (98-107) Carbon Dioxide Level 32 MMOL/L (21-32) Anion Gap 3 mmol/L (5-15) L Blood Urea Nitrogen 23 mg/dL (7-18) H Creatinine 1.4 MG/DL (0.55-1.30) H Estimat Glomerular Filtration Rate 46.3 mL/min (>60) Glucose Level 268 MG/DL (74-106) H Calcium Level 8.9 MG/DL (8.5-10.1) Phosphorus Level 3.7 MG/DL (2.5-4.9) Magnesium Level 1.9 MG/DL (1.8-2.4) Total Bilirubin 0.3 MG/DL (0.2-1.0) Aspartate Amino Transf (AST/SGOT) 12 U/L (15-37) L Alanine Aminotransferase (ALT/SGPT) 18 U/L (12-78) Alkaline Phosphatase 82 U/L (46-116) C-Reactive Protein, Quantitative 4.6 mg/dL (0.00-0.90) H Total Protein 7.6 G/DL (6.4-8.2) Albumin 3.3 G/DL (3.4-5.0) L Globulin 4.3 g/dL Albumin/Globulin Ratio 0.8 (1.0-2.7) L Current Medications Medications (Trade) Dose Ordered Sig/Sage Route PRN Reason Start Time Stop Time Status Last Admin Dose Admin Acetaminophen (Tylenol) 650 mg Q4H PRN ORAL fever 12/19/16 14:00 01/18/17 13:59 Acetaminophen/ Hydrocodone Bitart (Parrish 5/325) 1 tab Q4HR PRN ORAL Moderate Pain (Pain Scale 4-6) 12/20/16 14:30 12/27/16 08:59 12/21/16 14:42 Al Hydroxide/Mg Hydroxide (Mylanta II) 30 ml Q6H PRN ORAL dyspepsia 12/19/16 14:00 01/18/17 13:59 Albuterol Sulfate (Proventil MDI) 2 puff EVERY 6 HOURS INH 12/19/16 18:00 01/18/17 17:59 12/22/16 07:48 Aztreonam 1 gm/ Dextrose 55 ml @ 110 mls/hr EVERY 8 HOURS IVPB 12/20/16 14:00 12/27/16 13:59 12/22/16 06:01 Bupropion HCl (Wellbutrin XL) 300 mg DAILY ORAL 12/20/16 09:00 01/19/17 08:59 12/22/16 09:01 Carisoprodol (Soma) 350 mg QHS ORAL 12/19/16 21:00 01/18/17 20:59 12/21/16 20:38 Dextrose (Dextrose 50%) STAT PRN IV Hypoglycemia 12/19/16 14:00 01/18/17 13:59 Diphenhydramine HCl (Benadryl) 25 mg Q6H PRN ORAL Itching/Pruritis 12/19/16 14:00 01/18/17 13:59 Docusate Sodium (Colace) 100 mg TWICE A DAY ORAL 12/20/16 18:00 01/19/17 17:59 12/22/16 09:01 Gabapentin (Neurontin) 600 mg BEDTIME ORAL 12/19/16 21:00 01/18/17 20:59 12/21/16 20:37 Hydralazine HCl (Apresoline) 25 mg EVERY 8 HOURS ORAL 12/19/16 15:45 01/18/17 15:44 12/22/16 06:00 Insulin Aspart (NovoLOG) BEFORE MEALS AND HS SUBQ 12/19/16 16:30 01/18/17 16:29 12/22/16 06:04 Losartan Potassium (Cozaar) 100 mg DAILY ORAL 12/20/16 09:00 01/19/17 08:59 12/22/16 09:01 Metronidazole (Flagyl) 500 mg Q8HR ORAL 12/20/16 14:00 12/27/16 13:59 12/22/16 05:59 Morphine Sulfate (Morphine Sulfate) 4 mg Q4H PRN IVP Severe Pain (Pain Scale 7-10) 12/20/16 12:30 12/27/16 12:29 Nitroglycerin (Ntg) 0.4 mg Q5M X 3 DOSES PRN SL Prn Chest Pain 12/19/16 14:00 01/18/17 13:59 Ondansetron HCl (Zofran) 4 mg Q6H PRN IVP Nausea & Vomiting 12/19/16 14:00 01/18/17 13:59 12/21/16 16:53 Polyethylene Glycol (Miralax) 17 gm BEDTIME ORAL 12/20/16 21:00 01/19/17 20:59 12/21/16 20:37 Polyethylene Glycol (Miralax) 17 gm HSPRN PRN ORAL Constipation 12/19/16 14:00 01/18/17 13:59 Promethazine HCl/ Codeine (Phenergan with Codeine) 5 ml Q6H PRN ORAL For Cough 12/22/16 09:30 01/21/17 09:29 Sitagliptin Phosphate (Januvia) 25 mg ACBREAKFAST ORAL 12/22/16 06:30 01/21/17 06:29 12/22/16 05:59 Temazepam (Restoril) 15 mg HSPRN PRN ORAL Insomnia 12/19/16 14:00 12/26/16 13:59 Verapamil HCl (Calan SR) 240 mg DAILY ORAL 12/20/16 09:00 01/19/17 08:59 12/22/16 09:01 SILVINA JACOBO M.D. Dec 22, 2016 10:40
[2016-12-22] MEDS ORDERED: Milk of Magnesia 30ml Ud ORAL PRN (11:15)
[2016-12-22] MEDS: Promethazine/Codeine 5ml UD ORAL PRN ×2 (11:16→20:30)
--- NOTE | 2016-12-22 11:59 | GI Progress Note ---
Assessment/Plan Problems: (1) Diverticulitis ICD Codes: K57.92 - Diverticulitis of intestine, part unspecified, without perforation or abscess without bleeding SNOMED: 910976626 (2) Cyclical vomiting ICD Codes: G43.A0 - Cyclical vomiting, not intractable SNOMED: 86823458 (3) Elevated lipase ICD Codes: R74.8 - Abnormal levels of other serum enzymes SNOMED: 338073184 (4) Hypoalbuminemia ICD Codes: E88.09 - Other disorders of plasma-protein metabolism, not elsewhere classified SNOMED: 632832133 (5) Diabetes mellitus ICD Codes: E11.9 - Type 2 diabetes mellitus without complications SNOMED: 57259732 Status: stable Status Narrative Discussed with Dr. Mancuso. Assessment/Plan OB stool positive cdiff negative stable H&H laxatives >> MOM x 1 today stable labs pain control fu H&H outpatient colonoscopy dc planning Subjective Gastrointestinal/Abdominal: Reports: abdominal pain - improved, other - constipated Objective Last 24 Hour Vital Signs Date Time Temp Pulse Resp B/P (MAP) Pulse Ox O2 Delivery O2 Flow Rate FiO2 12/22/16 09:01 104 108/79 12/22/16 09:01 108/79 12/22/16 08:00 99.3 104 18 108/79 100 Room Air 12/22/16 07:51 95 18 96 Room Air 12/22/16 07:50 95 20 96 Room Air 12/22/16 06:00 130/79 12/22/16 03:50 97.4 101 18 130/79 96 Room Air 12/22/16 01:19 91 18 97 Room Air 12/22/16 01:17 91 20 97 Room Air 12/22/16 00:00 97.5 100 20 111/67 97 Room Air 12/21/16 21:50 125/70 12/21/16 21:00 97.5 55 20 125/70 100 Room Air 12/21/16 20:00 97.5 55 20 125/70 100 Room Air 12/21/16 19:46 100 18 96 Room Air 12/21/16 19:44 98 20 96 Room Air 12/21/16 16:24 97.9 79 20 115/67 98 Room Air 12/21/16 14:41 130/72 12/21/16 13:12 103 20 96 Room Air 12/21/16 13:10 97 20 95 Room Air 21 12/21/16 12:15 97.7 95 23 116/67 94 Room Air Laboratory Tests Test 12/22/16 04:35 White Blood Count 8.4 K/UL (4.8-10.8) Red Blood Count 4.20 M/UL (4.20-5.40) Hemoglobin 13.3 G/DL (12.0-16.0) Hematocrit 43.7 % (37.0-47.0) Mean Corpuscular Volume 104 FL (80-99) H Mean Corpuscular Hemoglobin 31.7 PG (27.0-31.0) H Mean Corpuscular Hemoglobin Concent 30.5 G/DL (32.0-36.0) L Red Cell Distribution Width 14.8 % (11.6-14.8) Platelet Count 274 K/UL (150-450) Mean Platelet Volume 8.0 FL (6.5-10.1) Neutrophils (%) (Auto) 74.3 % (45.0-75.0) Lymphocytes (%) (Auto) 16.6 % (20.0-45.0) L Monocytes (%) (Auto) 7.4 % (1.0-10.0) Eosinophils (%) (Auto) 0.9 % (0.0-3.0) Basophils (%) (Auto) 0.8 % (0.0-2.0) Erythrocyte Sedimentation Rate 15 MM/HR (0-30) Sodium Level 136 MMOL/L (136-145) Potassium Level 5.0 MMOL/L (3.5-5.1) Chloride Level 101 MMOL/L (98-107) Carbon Dioxide Level 32 MMOL/L (21-32) Anion Gap 3 mmol/L (5-15) L Blood Urea Nitrogen 23 mg/dL (7-18) H Creatinine 1.4 MG/DL (0.55-1.30) H Estimat Glomerular Filtration Rate 46.3 mL/min (>60) Glucose Level 268 MG/DL (74-106) H Calcium Level 8.9 MG/DL (8.5-10.1) Phosphorus Level 3.7 MG/DL (2.5-4.9) Magnesium Level 1.9 MG/DL (1.8-2.4) Total Bilirubin 0.3 MG/DL (0.2-1.0) Aspartate Amino Transf (AST/SGOT) 12 U/L (15-37) L Alanine Aminotransferase (ALT/SGPT) 18 U/L (12-78) Alkaline Phosphatase 82 U/L (46-116) C-Reactive Protein, Quantitative 4.6 mg/dL (0.00-0.90) H Total Protein 7.6 G/DL (6.4-8.2) Albumin 3.3 G/DL (3.4-5.0) L Globulin 4.3 g/dL Albumin/Globulin Ratio 0.8 (1.0-2.7) L Height (Feet): 5 Height (Inches): 2.00 Weight (Pounds): 240 General Appearance: WD/WN, no apparent distress, alert, obese Cardiovascular: normal rate Respiratory/Chest: normal breath sounds, no respiratory distress Abdominal Exam: normal bowel sounds, non tender, soft Extremities: normal range of motion, non-tender Cassy Oconnor N.P. Dec 22, 2016 11:59
[2016-12-22] MEDS ORDERED: Milk of Magnesia 30ml Ud ORAL ONE (12:00)
--- NOTE | 2016-12-22 14:29 | Pulmonology Progress Note ---
Assessment/Plan Problems: (1) Diverticulitis (2) GI (gastrointestinal bleed) (3) History of hypertension (4) Osteoarthritis (5) Diabetes mellitus Assessment/Plan some couging no BM yet continue IV abx check electroltyes GI evaluation increase dose of pain meds Subjective ROS Limited/Unobtainable: No Interval Events: late note 12/21 Constitutional: Reports: no symptoms HEENT: Repors: no symptoms Allergies: Coded Allergies: PENICILLINS (Verified Allergy, Severe, Anaphylaxis, 03/09/12) TOMATO (Verified Allergy, Severe, Anaphylaxis, 03/09/12) Kiwi (Verified Allergy, Intermediate, HIVES & UTACARIA, 03/09/12) IBUPROFEN (Unverified Allergy, Unknown, 08/02/16) INFLUENZA VIRUS VACCINES (Verified Allergy, Unknown, 12/20/16) Uncoded Allergies: PENICILLIN (Allergy, Unknown, 08/02/16) Objective Last 24 Hour Vital Signs Date Time Temp Pulse Resp B/P (MAP) Pulse Ox O2 Delivery O2 Flow Rate FiO2 12/22/16 14:18 133/70 12/22/16 13:26 94 18 Room Air 12/22/16 13:25 93 20 Room Air 12/22/16 12:00 99.1 105 20 133/70 100 Room Air 12/22/16 09:01 104 108/79 12/22/16 09:01 108/79 12/22/16 08:00 99.3 104 18 108/79 100 Room Air 12/22/16 07:51 95 18 96 Room Air 12/22/16 07:50 95 20 96 Room Air 12/22/16 06:00 130/79 12/22/16 03:50 97.4 101 18 130/79 96 Room Air 12/22/16 01:19 91 18 97 Room Air 12/22/16 01:17 91 20 97 Room Air 12/22/16 00:00 97.5 100 20 111/67 97 Room Air 12/21/16 21:50 125/70 12/21/16 21:00 97.5 55 20 125/70 100 Room Air 12/21/16 20:00 97.5 55 20 125/70 100 Room Air 12/21/16 19:46 100 18 96 Room Air 12/21/16 19:44 98 20 96 Room Air 12/21/16 16:24 97.9 79 20 115/67 98 Room Air 12/21/16 14:41 130/72 General Appearance: WD/WN HEENT: normocephalic, atraumatic Breasts: no masses Cardiovascular: normal peripheral pulses Abdomen: normal bowel sounds, soft, non tender Genitourinary: normal external genitalia Extremities: no clubbing Skin: no rash 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 Lymphatic: no neck adenopathy Microbiology Date/Time Source Procedure Growth Status 12/20/16 18:00 Stool Stool Culture Pending Resulted 12/20/16 18:00 Stool Clostridium difficile Toxin Assay - Final Resulted Laboratory Tests 12/22/16 04:35: White Blood Count 8.4, Red Blood Count 4.20, Hemoglobin 13.3, Hematocrit 43.7, Mean Corpuscular Volume 104H, Mean Corpuscular Hemoglobin 31.7H, Mean Corpuscular Hemoglobin Concent 30.5L, Red Cell Distribution Width 14.8, Platelet Count 274, Mean Platelet Volume 8.0, Neutrophils (%) (Auto) 74.3, Lymphocytes (%) (Auto) 16.6L, Monocytes (%) (Auto) 7.4, Eosinophils (%) (Auto) 0.9, Basophils (%) (Auto) 0.8, Erythrocyte Sedimentation Rate 15, Sodium Level 136, Potassium Level 5.0, Chloride Level 101, Carbon Dioxide Level 32, Anion Gap 3L, Blood Urea Nitrogen 23H, Creatinine 1.4H, Estimat Glomerular Filtration Rate 46.3, Glucose Level 268H, Calcium Level 8.9, Phosphorus Level 3.7, Magnesium Level 1.9, Total Bilirubin 0.3, Aspartate Amino Transf (AST/SGOT) 12L , Alanine Aminotransferase (ALT/SGPT) 18, Alkaline Phosphatase 82, C-Reactive Protein, Quantitative 4.6H, Total Protein 7.6, Albumin 3.3L, Globulin 4.3, Albumin/Globulin Ratio 0.8L Current Medications Medications (Trade) Dose Ordered Sig/Sage Route PRN Reason Start Time Stop Time Status Last Admin Dose Admin Acetaminophen (Tylenol) 650 mg Q4H PRN ORAL fever 12/19/16 14:00 01/18/17 13:59 Acetaminophen/ Hydrocodone Bitart ([place] 5/325) 1 tab Q4HR PRN ORAL Moderate Pain (Pain Scale 4-6) 12/20/16 14:30 12/27/16 08:59 12/21/16 14:42 Al Hydroxide/Mg Hydroxide (Mylanta II) 30 ml Q6H PRN ORAL dyspepsia 12/19/16 14:00 01/18/17 13:59 Albuterol Sulfate (Proventil MDI) 2 puff EVERY 6 HOURS INH 12/19/16 18:00 01/18/17 17:59 12/22/16 13:26 Bupropion HCl (Wellbutrin XL) 300 mg DAILY ORAL 12/20/16 09:00 01/19/17 08:59 12/22/16 09:01 Carisoprodol (Soma) 350 mg QHS ORAL 12/19/16 21:00 01/18/17 20:59 12/21/16 20:38 Dextrose (Dextrose 50%) STAT PRN IV Hypoglycemia 12/19/16 14:00 01/18/17 13:59 Diphenhydramine HCl (Benadryl) 25 mg Q6H PRN ORAL Itching/Pruritis 12/19/16 14:00 01/18/17 13:59 Docusate Sodium (Colace) 100 mg TWICE A DAY ORAL 12/20/16 18:00 01/19/17 17:59 12/22/16 09:01 Gabapentin (Neurontin) 600 mg BEDTIME ORAL 12/19/16 21:00 01/18/17 20:59 12/21/16 20:37 Hydralazine HCl (Apresoline) 25 mg EVERY 8 HOURS ORAL 12/19/16 15:45 01/18/17 15:44 12/22/16 14:18 Insulin Aspart (NovoLOG) BEFORE MEALS AND HS SUBQ 12/19/16 16:30 01/18/17 16:29 12/22/16 12:06 Levofloxacin 150 ml @ 100 mls/hr Q24H IVPB 12/22/16 12:00 12/29/16 11:59 12/22/16 11:48 Losartan Potassium (Cozaar) 100 mg DAILY ORAL 12/20/16 09:00 01/19/17 08:59 12/22/16 09:01 Magnesium Hydroxide (Mom) 30 ml DAILYPRN PRN ORAL Constipation 12/22/16 11:15 01/21/17 11:14 12/22/16 11:48 Metronidazole (Flagyl) 500 mg Q8HR ORAL 12/20/16 14:00 12/27/16 13:59 12/22/16 14:18 Morphine Sulfate (Morphine Sulfate) 4 mg Q4H PRN IVP Severe Pain (Pain Scale 7-10) 12/20/16 12:30 12/27/16 12:29 Nitroglycerin (Ntg) 0.4 mg Q5M X 3 DOSES PRN SL Prn Chest Pain 12/19/16 14:00 01/18/17 13:59 Ondansetron HCl (Zofran) 4 mg Q6H PRN IVP Nausea & Vomiting 12/19/16 14:00 01/18/17 13:59 12/21/16 16:53 Polyethylene Glycol (Miralax) 17 gm BEDTIME ORAL 12/20/16 21:00 01/19/17 20:59 12/21/16 20:37 Polyethylene Glycol (Miralax) 17 gm HSPRN PRN ORAL Constipation 12/19/16 14:00 01/18/17 13:59 Promethazine HCl/ Codeine (Phenergan with Codeine) 5 ml Q6H PRN ORAL For Cough 12/22/16 09:30 01/21/17 09:29 12/22/16 11:16 Sitagliptin Phosphate (Januvia) 25 mg ACBREAKFAST ORAL 12/22/16 06:30 01/21/17 06:29 12/22/16 05:59 Temazepam (Restoril) 15 mg HSPRN PRN ORAL Insomnia 12/19/16 14:00 12/26/16 13:59 Verapamil HCl (Calan SR) 240 mg DAILY ORAL 12/20/16 09:00 01/19/17 08:59 12/22/16 09:01 CHARIS RODAS Dec 22, 2016 14:29
--- NOTE | 2016-12-22 14:30 | Pulmonology Progress Note ---
Assessment/Plan Problems: (1) Diverticulitis (2) GI (gastrointestinal bleed) (3) History of hypertension (4) Osteoarthritis (5) Diabetes mellitus Assessment/Plan coughing no BM yet continue IV abx check electroltyes GI evaluation increase dose of pain meds on antitussives Subjective Allergies: Coded Allergies: PENICILLINS (Verified Allergy, Severe, Anaphylaxis, 03/09/12) TOMATO (Verified Allergy, Severe, Anaphylaxis, 03/09/12) Kiwi (Verified Allergy, Intermediate, HIVES & UTACARIA, 03/09/12) IBUPROFEN (Unverified Allergy, Unknown, 08/02/16) INFLUENZA VIRUS VACCINES (Verified Allergy, Unknown, 12/20/16) Uncoded Allergies: PENICILLIN (Allergy, Unknown, 08/02/16) Objective Last 24 Hour Vital Signs Date Time Temp Pulse Resp B/P (MAP) Pulse Ox O2 Delivery O2 Flow Rate FiO2 12/22/16 14:18 133/70 12/22/16 13:26 94 18 Room Air 12/22/16 13:25 93 20 Room Air 12/22/16 12:00 99.1 105 20 133/70 100 Room Air 12/22/16 09:01 104 108/79 12/22/16 09:01 108/79 12/22/16 08:00 99.3 104 18 108/79 100 Room Air 12/22/16 07:51 95 18 96 Room Air 12/22/16 07:50 95 20 96 Room Air 12/22/16 06:00 130/79 12/22/16 03:50 97.4 101 18 130/79 96 Room Air 12/22/16 01:19 91 18 97 Room Air 12/22/16 01:17 91 20 97 Room Air 12/22/16 00:00 97.5 100 20 111/67 97 Room Air 12/21/16 21:50 125/70 12/21/16 21:00 97.5 55 20 125/70 100 Room Air 12/21/16 20:00 97.5 55 20 125/70 100 Room Air 12/21/16 19:46 100 18 96 Room Air 12/21/16 19:44 98 20 96 Room Air 12/21/16 16:24 97.9 79 20 115/67 98 Room Air 12/21/16 14:41 130/72 Objective General Appearance: WD/WN, no apparent distress Lines, tubes and drains: peripheral, HEENT: normocephalic, anicteric Neck: non-tender, normal alignment Respiratory/Chest: chest wall non-tender, lungs clear Cardiovascular/Chest: normal rate, regular rhythm Abdomen: non tender, soft Genitourinary/Rectal: normal genital exam, normal rectal exam Extremities: normal range of motion, non-pitting Microbiology Date/Time Source Procedure Growth Status 12/20/16 18:00 Stool Stool Culture Pending Resulted 12/20/16 18:00 Stool Clostridium difficile Toxin Assay - Final Resulted Laboratory Tests 12/22/16 04:35: White Blood Count 8.4, Red Blood Count 4.20, Hemoglobin 13.3, Hematocrit 43.7, Mean Corpuscular Volume 104H, Mean Corpuscular Hemoglobin 31.7H, Mean Corpuscular Hemoglobin Concent 30.5L, Red Cell Distribution Width 14.8, Platelet Count 274, Mean Platelet Volume 8.0, Neutrophils (%) (Auto) 74.3, Lymphocytes (%) (Auto) 16.6L, Monocytes (%) (Auto) 7.4, Eosinophils (%) (Auto) 0.9, Basophils (%) (Auto) 0.8, Erythrocyte Sedimentation Rate 15, Sodium Level 136, Potassium Level 5.0, Chloride Level 101, Carbon Dioxide Level 32, Anion Gap 3L, Blood Urea Nitrogen 23H, Creatinine 1.4H, Estimat Glomerular Filtration Rate 46.3, Glucose Level 268H, Calcium Level 8.9, Phosphorus Level 3.7, Magnesium Level 1.9, Total Bilirubin 0.3, Aspartate Amino Transf (AST/SGOT) 12L , Alanine Aminotransferase (ALT/SGPT) 18, Alkaline Phosphatase 82, C-Reactive Protein, Quantitative 4.6H, Total Protein 7.6, Albumin 3.3L, Globulin 4.3, Albumin/Globulin Ratio 0.8L Current Medications Medications (Trade) Dose Ordered Sig/Sage Route PRN Reason Start Time Stop Time Status Last Admin Dose Admin Acetaminophen (Tylenol) 650 mg Q4H PRN ORAL fever 12/19/16 14:00 01/18/17 13:59 Acetaminophen/ Hydrocodone Bitart ([place] 5/325) 1 tab Q4HR PRN ORAL Moderate Pain (Pain Scale 4-6) 12/20/16 14:30 12/27/16 08:59 12/21/16 14:42 Al Hydroxide/Mg Hydroxide (Mylanta II) 30 ml Q6H PRN ORAL dyspepsia 12/19/16 14:00 01/18/17 13:59 Albuterol Sulfate (Proventil MDI) 2 puff EVERY 6 HOURS INH 12/19/16 18:00 01/18/17 17:59 12/22/16 13:26 Bupropion HCl (Wellbutrin XL) 300 mg DAILY ORAL 12/20/16 09:00 01/19/17 08:59 12/22/16 09:01 Carisoprodol (Soma) 350 mg QHS ORAL 12/19/16 21:00 01/18/17 20:59 12/21/16 20:38 Dextrose (Dextrose 50%) STAT PRN IV Hypoglycemia 12/19/16 14:00 01/18/17 13:59 Diphenhydramine HCl (Benadryl) 25 mg Q6H PRN ORAL Itching/Pruritis 12/19/16 14:00 01/18/17 13:59 Docusate Sodium (Colace) 100 mg TWICE A DAY ORAL 12/20/16 18:00 01/19/17 17:59 12/22/16 09:01 Gabapentin (Neurontin) 600 mg BEDTIME ORAL 12/19/16 21:00 01/18/17 20:59 12/21/16 20:37 Hydralazine HCl (Apresoline) 25 mg EVERY 8 HOURS ORAL 12/19/16 15:45 01/18/17 15:44 12/22/16 14:18 Insulin Aspart (NovoLOG) BEFORE MEALS AND HS SUBQ 12/19/16 16:30 01/18/17 16:29 12/22/16 12:06 Levofloxacin 150 ml @ 100 mls/hr Q24H IVPB 12/22/16 12:00 12/29/16 11:59 12/22/16 11:48 Losartan Potassium (Cozaar) 100 mg DAILY ORAL 12/20/16 09:00 01/19/17 08:59 12/22/16 09:01 Magnesium Hydroxide (Mom) 30 ml DAILYPRN PRN ORAL Constipation 12/22/16 11:15 01/21/17 11:14 12/22/16 11:48 Metronidazole (Flagyl) 500 mg Q8HR ORAL 12/20/16 14:00 12/27/16 13:59 12/22/16 14:18 Morphine Sulfate (Morphine Sulfate) 4 mg Q4H PRN IVP Severe Pain (Pain Scale 7-10) 12/20/16 12:30 12/27/16 12:29 Nitroglycerin (Ntg) 0.4 mg Q5M X 3 DOSES PRN SL Prn Chest Pain 12/19/16 14:00 01/18/17 13:59 Ondansetron HCl (Zofran) 4 mg Q6H PRN IVP Nausea & Vomiting 12/19/16 14:00 01/18/17 13:59 12/21/16 16:53 Polyethylene Glycol (Miralax) 17 gm BEDTIME ORAL 12/20/16 21:00 01/19/17 20:59 12/21/16 20:37 Polyethylene Glycol (Miralax) 17 gm HSPRN PRN ORAL Constipation 12/19/16 14:00 01/18/17 13:59 Promethazine HCl/ Codeine (Phenergan with Codeine) 5 ml Q6H PRN ORAL For Cough 12/22/16 09:30 01/21/17 09:29 12/22/16 11:16 Sitagliptin Phosphate (Januvia) 25 mg ACBREAKFAST ORAL 12/22/16 06:30 01/21/17 06:29 12/22/16 05:59 Temazepam (Restoril) 15 mg HSPRN PRN ORAL Insomnia 12/19/16 14:00 12/26/16 13:59 Verapamil HCl (Calan SR) 240 mg DAILY ORAL 12/20/16 09:00 01/19/17 08:59 12/22/16 09:01 CHARIS RODAS Dec 22, 2016 14:30
[2016-12-22] MEDS: Miralax 17gm pkt ORAL SCH (20:30)
--- NOTE | 2016-12-22 20:42 | Diagnostic Imaging Report ---
APPROVED REPORT CPT Code: 10760 Present Symptoms Shortness of breath Comments: Hx chest pain, hypertension. Past History Prior Lower Extremity Venous DuplexDate : 02/05/2016 Comments :No acute findings. BILATERAL: Imaging reveals a patent deep venous system bilaterally. There is no evidence of thrombus within the femoral, popliteal or tibial segments. The greater saphenous veins are also within normal limits. Doppler indicates normal spontaneous flow within these segments. The calf veins were not well visualized bilaterally.
[2016-12-23 04:00] VITALS: BP 152/95
[2016-12-23] MEDS: HydrALAZINE 25mg tab ORAL SCH ×2 (05:42→13:49)
[2016-12-23] MEDS: sitaGLIPtin 25mg tab ORAL SCH (05:42)
[2016-12-23] MEDS: metroNIDAZOLE 500mg tab ORAL SCH ×2 (05:42→13:49)
[2016-12-23] MEDS: NovoLOG Insulin Flexpen SUBQ SCH ×2 (05:44→12:31)
[2016-12-23] MEDS: Albuterol 90mcg Inhaler 8gm INH SCH ×3 (06:00→13:27)
[2016-12-23 06:43] LABS: BASOPHILS % (AUTO) 0.7 % (0.0-2.0); EOSINOPHILS % (AUTO) 0.9 % (0.0-3.0); LYMPHOCYTES % (AUTO) 19.7 % (20.0-45.0); MEAN CORPUSCULAR HGB CONC 31.4 G/DL (32.0-36.0); MEAN CORPUSCULAR VOLUME 105 FL (80-99); MEAN PLATELET VOLUME 6.8 FL (6.5-10.1); MONOCYTES % (AUTO) 8.3 % (1.0-10.0); NEUTROPHILS % (AUTO) 70.4 % (45.0-75.0); PLATELET COUNT 250 K/UL (150-450); RED BLOOD COUNT 3.98 M/UL (4.20-5.40); RED CELL DISTRIBUTION WIDTH 14.6 % (11.6-14.8); WHITE BLOOD COUNT 9.7 K/UL (4.8-10.8)
[2016-12-23 06:50] LABS: ANION GAP 1 mmol/L (5-15); CALCIUM 8.8 MG/DL (8.5-10.1); CARBON DIOXIDE 35 MMOL/L (21-32); CHLORIDE 100 MMOL/L (98-107); CREATININE 1.3 MG/DL (0.55-1.30); GLOMERULAR FILTRATION RATE 50.4 mL/min (>60); SODIUM 136 MMOL/L (136-145)
[2016-12-23 08:00] VITALS: BP 136/78
[2016-12-23] MEDS: Docusate 100mg cap ORAL SCH (08:32)
[2016-12-23] MEDS: Verapamil SR 240mg tab ORAL SCH (08:32)
[2016-12-23] MEDS: BuPROPion XL 300mg tab ORAL SCH (08:32)
[2016-12-23] MEDS: Losartan 50mg tab ORAL SCH (08:33)
[2016-12-23] MEDS: Promethazine/Codeine 5ml UD ORAL PRN (08:33)
[2016-12-23] MEDS: Norco 5mg/325mg tab ORAL PRN ×2 (08:37→12:33)
--- NOTE | 2016-12-23 10:40 | Infectious Diseases Prog Note ---
Assessment/Plan Assessment/Plan Assesment: Acute sigmoid diverticulitis - abd pain improving -CT abd/p: Acute sigmoid diverticulitis. Atherosclerotic disease. 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 Leukocytosis- SP Afebrile Bronchitis -CXR: CHF/interstitial edema JORY COPD HTN PNC allergy (severe- anaphylaxis) Plan: cont flagyl and Levaquin ( abx RX d# 5 / 10 ) , upon DC will change to PO 12/22 SP Azactam d# 3 -Monitor CBC/BMP, temperatures monitor Cxray monitor SCx Subjective Constitutional: Denies: no symptoms, fever, chills, fatigue, anorexia, drenching sweats, other Allergies: Coded Allergies: PENICILLINS (Verified Allergy, Severe, Anaphylaxis, 03/09/12) TOMATO (Verified Allergy, Severe, Anaphylaxis, 03/09/12) Kiwi (Verified Allergy, Intermediate, HIVES & UTACARIA, 03/09/12) IBUPROFEN (Unverified Allergy, Unknown, 08/02/16) INFLUENZA VIRUS VACCINES (Verified Allergy, Unknown, 12/20/16) Uncoded Allergies: PENICILLIN (Allergy, Unknown, 08/02/16) Subjective lower abd pain is improving , cough ++ Objective Vital Signs Last 24 Hour Vital Signs Date Time Temp Pulse Resp B/P (MAP) Pulse Ox O2 Delivery O2 Flow Rate FiO2 12/23/16 08:32 95 136/78 12/23/16 05:42 152/95 12/23/16 04:00 98.4 95 21 152/95 94 Room Air 12/23/16 01:58 Room Air 12/23/16 01:58 Room Air 12/22/16 23:11 98.2 112 20 122/78 94 Room Air 12/22/16 21:31 97.3 12/22/16 20:33 Room Air 12/22/16 20:33 Room Air 12/22/16 20:30 131/83 12/22/16 19:08 97.3 95 18 131/83 90 Room Air 12/22/16 15:57 97.7 102 23 135/72 98 Room Air 12/22/16 14:18 133/70 12/22/16 13:26 94 18 Room Air 12/22/16 13:25 93 20 Room Air 21 12/22/16 12:00 99.1 105 20 133/70 100 Room Air 12/22/16 09:01 104 108/79 12/22/16 09:01 108/79 Height (Feet): 5 Height (Inches): 2.00 Weight (Pounds): 240 HEENT: anicteric Respiratory/Chest: no respiratory distress Cardiovascular: regularly irregular Abdomen: no organomegaly Microbiology Date/Time Source Procedure Growth Status 12/20/16 18:00 Stool Stool Culture Pending Resulted 12/20/16 18:00 Stool Clostridium difficile Toxin Assay - Final Resulted Laboratory Tests Test 12/23/16 05:55 White Blood Count 9.7 K/UL (4.8-10.8) Red Blood Count 3.98 M/UL (4.20-5.40) L Hemoglobin 13.1 G/DL (12.0-16.0) Hematocrit 41.8 % (37.0-47.0) Mean Corpuscular Volume 105 FL (80-99) H Mean Corpuscular Hemoglobin 33.0 PG (27.0-31.0) H Mean Corpuscular Hemoglobin Concent 31.4 G/DL (32.0-36.0) L Red Cell Distribution Width 14.6 % (11.6-14.8) Platelet Count 250 K/UL (150-450) Mean Platelet Volume 6.8 FL (6.5-10.1) Neutrophils (%) (Auto) 70.4 % (45.0-75.0) Lymphocytes (%) (Auto) 19.7 % (20.0-45.0) L Monocytes (%) (Auto) 8.3 % (1.0-10.0) Eosinophils (%) (Auto) 0.9 % (0.0-3.0) Basophils (%) (Auto) 0.7 % (0.0-2.0) Sodium Level 136 MMOL/L (136-145) Potassium Level 5.0 MMOL/L (3.5-5.1) Chloride Level 100 MMOL/L (98-107) Carbon Dioxide Level 35 MMOL/L (21-32) H Anion Gap 1 mmol/L (5-15) L Blood Urea Nitrogen 18 mg/dL (7-18) Creatinine 1.3 MG/DL (0.55-1.30) Estimat Glomerular Filtration Rate 50.4 mL/min (>60) Glucose Level 239 MG/DL (74-106) H Calcium Level 8.8 MG/DL (8.5-10.1) Current Medications Medications (Trade) Dose Ordered Sig/Sage Route PRN Reason Start Time Stop Time Status Last Admin Dose Admin Acetaminophen (Tylenol) 650 mg Q4H PRN ORAL fever 12/19/16 14:00 01/18/17 13:59 Acetaminophen/ Hydrocodone Bitart ([place] 5/325) 1 tab Q4HR PRN ORAL Moderate Pain (Pain Scale 4-6) 12/20/16 14:30 12/27/16 08:59 12/21/16 14:42 Al Hydroxide/Mg Hydroxide (Mylanta II) 30 ml Q6H PRN ORAL dyspepsia 12/19/16 14:00 01/18/17 13:59 Albuterol Sulfate (Proventil MDI) 2 puff EVERY 6 HOURS INH 12/19/16 18:00 01/18/17 17:59 12/23/16 06:00 Bupropion HCl (Wellbutrin XL) 300 mg DAILY ORAL 12/20/16 09:00 01/19/17 08:59 12/23/16 08:32 Carisoprodol (Soma) 350 mg QHS ORAL 12/19/16 21:00 01/18/17 20:59 12/22/16 20:32 Dextrose (Dextrose 50%) STAT PRN IV Hypoglycemia 12/19/16 14:00 01/18/17 13:59 Diphenhydramine HCl (Benadryl) 25 mg Q6H PRN ORAL Itching/Pruritis 12/19/16 14:00 01/18/17 13:59 Docusate Sodium (Colace) 100 mg TWICE A DAY ORAL 12/20/16 18:00 01/19/17 17:59 12/23/16 08:32 Gabapentin (Neurontin) 600 mg BEDTIME ORAL 12/19/16 21:00 01/18/17 20:59 12/22/16 20:32 Hydralazine HCl (Apresoline) 25 mg EVERY 8 HOURS ORAL 12/19/16 15:45 01/18/17 15:44 12/23/16 05:42 Insulin Aspart (NovoLOG) BEFORE MEALS AND HS SUBQ 12/19/16 16:30 01/18/17 16:29 12/23/16 05:44 Levofloxacin 150 ml @ 100 mls/hr Q24H IVPB 12/22/16 12:00 12/29/16 11:59 12/22/16 11:48 Losartan Potassium (Cozaar) 100 mg DAILY ORAL 12/20/16 09:00 01/19/17 08:59 12/22/16 09:01 Magnesium Hydroxide (Mom) 30 ml DAILYPRN PRN ORAL Constipation 12/22/16 11:15 01/21/17 11:14 12/22/16 11:48 Metronidazole (Flagyl) 500 mg Q8HR ORAL 12/20/16 14:00 12/27/16 13:59 12/23/16 05:42 Morphine Sulfate (Morphine Sulfate) 4 mg Q4H PRN IVP Severe Pain (Pain Scale 7-10) 12/20/16 12:30 12/27/16 12:29 Nitroglycerin (Ntg) 0.4 mg Q5M X 3 DOSES PRN SL Prn Chest Pain 12/19/16 14:00 01/18/17 13:59 Ondansetron HCl (Zofran) 4 mg Q6H PRN IVP Nausea & Vomiting 12/19/16 14:00 01/18/17 13:59 12/21/16 16:53 Polyethylene Glycol (Miralax) 17 gm BEDTIME ORAL 12/20/16 21:00 01/19/17 20:59 12/22/16 20:30 Polyethylene Glycol (Miralax) 17 gm HSPRN PRN ORAL Constipation 12/19/16 14:00 01/18/17 13:59 Promethazine HCl/ Codeine (Phenergan with Codeine) 5 ml Q6H PRN ORAL For Cough 12/22/16 09:30 01/21/17 09:29 12/22/16 20:30 Sitagliptin Phosphate (Januvia) 25 mg ACBREAKFAST ORAL 12/22/16 06:30 01/21/17 06:29 12/23/16 05:42 Temazepam (Restoril) 15 mg HSPRN PRN ORAL Insomnia 12/19/16 14:00 12/26/16 13:59 Verapamil HCl (Calan SR) 240 mg DAILY ORAL 12/20/16 09:00 01/19/17 08:59 12/23/16 08:32 SILVINA JACOBO M.D. Dec 23, 2016 10:40
[2016-12-23 12:00] VITALS: BP 140/84
[2016-12-23] MEDS ORDERED: METRONIDAZOLE500 MG ORAL (14:55)
--- NOTE | 2016-12-23 15:00 | Pulmonology Progress Note ---
Assessment/Plan Problems: (1) Diverticulitis (2) GI (gastrointestinal bleed) (3) History of hypertension (4) Osteoarthritis (5) Diabetes mellitus Assessment/Plan improving no more rectal bleeding pain is controlled no BM yet GI evaluation increase dose of pain meds dc home with oral abx Subjective ROS Limited/Unobtainable: No Constitutional: Reports: no symptoms HEENT: Repors: no symptoms Respiratory: Reports: no symptoms Allergies: Coded Allergies: PENICILLINS (Verified Allergy, Severe, Anaphylaxis, 03/09/12) TOMATO (Verified Allergy, Severe, Anaphylaxis, 03/09/12) Kiwi (Verified Allergy, Intermediate, HIVES & UTACARIA, 03/09/12) IBUPROFEN (Unverified Allergy, Unknown, 08/02/16) INFLUENZA VIRUS VACCINES (Verified Allergy, Unknown, 12/20/16) Uncoded Allergies: PENICILLIN (Allergy, Unknown, 08/02/16) Objective Last 24 Hour Vital Signs Date Time Temp Pulse Resp B/P (MAP) Pulse Ox O2 Delivery O2 Flow Rate FiO2 12/23/16 13:49 140/84 12/23/16 13:46 98.4 12/23/16 13:28 93 18 96 Room Air 21 12/23/16 13:28 93 18 Room Air 12/23/16 12:00 98.4 93 20 140/84 90 Room Air 12/23/16 08:33 136/78 12/23/16 08:32 95 136/78 12/23/16 08:00 98.6 95 20 136/78 95 Room Air 12/23/16 07:20 95 18 Room Air 12/23/16 07:20 95 20 96 Room Air 21 12/23/16 05:42 152/95 12/23/16 04:00 98.4 95 21 152/95 94 Room Air 12/23/16 01:58 Room Air 12/23/16 01:58 Room Air 12/22/16 23:11 98.2 112 20 122/78 94 Room Air 12/22/16 21:31 97.3 12/22/16 20:33 Room Air 12/22/16 20:33 Room Air 12/22/16 20:30 131/83 12/22/16 19:08 97.3 95 18 131/83 90 Room Air 12/22/16 15:57 97.7 102 23 135/72 98 Room Air Objective General Appearance: WD/WN, no apparent distress Lines, tubes and drains: peripheral, HEENT: normocephalic, anicteric Neck: non-tender, normal alignment Respiratory/Chest: chest wall non-tender, lungs clear Cardiovascular/Chest: normal rate, regular rhythm Abdomen: non tender, soft Genitourinary/Rectal: normal genital exam, normal rectal exam Extremities: normal range of motion, non-pitting Microbiology Date/Time Source Procedure Growth Status 12/20/16 18:00 Stool Stool Culture - Preliminary Resulted 12/20/16 18:00 Stool Clostridium difficile Toxin Assay - Final Resulted Laboratory Tests 12/23/16 05:55: White Blood Count 9.7, Red Blood Count 3.98L, Hemoglobin 13.1, Hematocrit 41.8, Mean Corpuscular Volume 105H, Mean Corpuscular Hemoglobin 33.0H, Mean Corpuscular Hemoglobin Concent 31.4L, Red Cell Distribution Width 14.6, Platelet Count 250, Mean Platelet Volume 6.8, Neutrophils (%) (Auto) 70.4, Lymphocytes (%) (Auto) 19.7L, Monocytes (%) (Auto) 8.3, Eosinophils (%) (Auto) 0.9, Basophils (%) (Auto) 0.7, Sodium Level 136, Potassium Level 5.0, Chloride Level 100, Carbon Dioxide Level 35H, Anion Gap 1L, Blood Urea Nitrogen 18, Creatinine 1.3, Estimat Glomerular Filtration Rate 50.4, Glucose Level 239H, Calcium Level 8.8 Current Medications Medications (Trade) Dose Ordered Sig/Sage Route PRN Reason Start Time Stop Time Status Last Admin Dose Admin Acetaminophen (Tylenol) 650 mg Q4H PRN ORAL fever 12/19/16 14:00 01/18/17 13:59 Acetaminophen/ Hydrocodone Bitart ([place] 5/325) 1 tab Q4HR PRN ORAL Moderate Pain (Pain Scale 4-6) 12/20/16 14:30 12/27/16 08:59 12/23/16 12:33 Al Hydroxide/Mg Hydroxide (Mylanta II) 30 ml Q6H PRN ORAL dyspepsia 12/19/16 14:00 01/18/17 13:59 Albuterol Sulfate (Proventil MDI) 2 puff EVERY 6 HOURS INH 12/19/16 18:00 01/18/17 17:59 12/23/16 13:27 Bupropion HCl (Wellbutrin XL) 300 mg DAILY ORAL 12/20/16 09:00 01/19/17 08:59 12/23/16 08:32 Carisoprodol (Soma) 350 mg QHS ORAL 12/19/16 21:00 01/18/17 20:59 12/22/16 20:32 Dextrose (Dextrose 50%) STAT PRN IV Hypoglycemia 12/19/16 14:00 01/18/17 13:59 Diphenhydramine HCl (Benadryl) 25 mg Q6H PRN ORAL Itching/Pruritis 12/19/16 14:00 01/18/17 13:59 Docusate Sodium (Colace) 100 mg TWICE A DAY ORAL 12/20/16 18:00 01/19/17 17:59 12/23/16 08:32 Gabapentin (Neurontin) 600 mg BEDTIME ORAL 12/19/16 21:00 01/18/17 20:59 12/22/16 20:32 Hydralazine HCl (Apresoline) 25 mg EVERY 8 HOURS ORAL 12/19/16 15:45 01/18/17 15:44 12/23/16 13:49 Insulin Aspart (NovoLOG) BEFORE MEALS AND HS SUBQ 12/19/16 16:30 01/18/17 16:29 12/23/16 12:31 Levofloxacin 150 ml @ 100 mls/hr Q24H IVPB 12/22/16 12:00 12/29/16 11:59 12/23/16 11:27 Losartan Potassium (Cozaar) 100 mg DAILY ORAL 12/20/16 09:00 01/19/17 08:59 12/23/16 08:33 Magnesium Hydroxide (Mom) 30 ml DAILYPRN PRN ORAL Constipation 12/22/16 11:15 01/21/17 11:14 12/22/16 11:48 Metronidazole (Flagyl) 500 mg Q8HR ORAL 12/20/16 14:00 12/27/16 13:59 12/23/16 13:49 Morphine Sulfate (Morphine Sulfate) 4 mg Q4H PRN IVP Severe Pain (Pain Scale 7-10) 12/20/16 12:30 12/27/16 12:29 Nitroglycerin (Ntg) 0.4 mg Q5M X 3 DOSES PRN SL Prn Chest Pain 12/19/16 14:00 01/18/17 13:59 Ondansetron HCl (Zofran) 4 mg Q6H PRN IVP Nausea & Vomiting 12/19/16 14:00 01/18/17 13:59 12/21/16 16:53 Polyethylene Glycol (Miralax) 17 gm BEDTIME ORAL 12/20/16 21:00 01/19/17 20:59 12/22/16 20:30 Polyethylene Glycol (Miralax) 17 gm HSPRN PRN ORAL Constipation 12/19/16 14:00 01/18/17 13:59 Promethazine HCl/ Codeine (Phenergan with Codeine) 5 ml Q6H PRN ORAL For Cough 12/22/16 09:30 01/21/17 09:29 12/23/16 08:33 Sitagliptin Phosphate (Januvia) 25 mg ACBREAKFAST ORAL 12/22/16 06:30 01/21/17 06:29 12/23/16 05:42 Temazepam (Restoril) 15 mg HSPRN PRN ORAL Insomnia 12/19/16 14:00 12/26/16 13:59 Verapamil HCl (Calan SR) 240 mg DAILY ORAL 12/20/16 09:00 01/19/17 08:59 12/23/16 08:32 CHARIS RODAS Dec 23, 2016 15:00
[2016-12-23] MEDS ORDERED: ACETAMINOPHEN-1 EAC1 ORAL (15:16)
[2016-12-23 16:00] VITALS: BP 143/78
[2016-12-23] MEDS ORDERED: Tubing IV Secondary IV ONE (16:14)
--- NOTE | 2016-12-23 16:47 | GI Progress Note ---
Assessment/Plan Problems: (1) Diverticulitis ICD Codes: K57.92 - Diverticulitis of intestine, part unspecified, without perforation or abscess without bleeding SNOMED: 421355032 (2) Cyclical vomiting ICD Codes: G43.A0 - Cyclical vomiting, not intractable SNOMED: 31381214 (3) Elevated lipase ICD Codes: R74.8 - Abnormal levels of other serum enzymes SNOMED: 926054655 (4) Hypoalbuminemia ICD Codes: E88.09 - Other disorders of plasma-protein metabolism, not elsewhere classified SNOMED: 410772843 (5) Diabetes mellitus ICD Codes: E11.9 - Type 2 diabetes mellitus without complications SNOMED: 43252969 Status: stable Status Narrative Discussed with Dr. Mancuso. Assessment/Plan OB stool positive cdiff negative stable H&H symptomatic treatment laxatives >> MOM x 1 today stable labs pain control fu H&H outpatient colonoscopy dc planning Subjective Gastrointestinal/Abdominal: Reports: abdominal pain Objective Last 24 Hour Vital Signs Date Time Temp Pulse Resp B/P (MAP) Pulse Ox O2 Delivery O2 Flow Rate FiO2 12/23/16 16:00 98.2 88 20 143/78 98 Room Air 12/23/16 13:49 140/84 12/23/16 13:46 98.4 12/23/16 13:28 93 18 96 Room Air 12/23/16 13:28 93 18 Room Air 12/23/16 12:00 98.4 93 20 140/84 90 Room Air 12/23/16 08:33 136/78 12/23/16 08:32 95 136/78 12/23/16 08:00 98.6 95 20 136/78 95 Room Air 12/23/16 07:20 95 18 Room Air 12/23/16 07:20 95 20 96 Room Air 21 12/23/16 05:42 152/95 12/23/16 04:00 98.4 95 21 152/95 94 Room Air 12/23/16 01:58 Room Air 12/23/16 01:58 Room Air 12/22/16 23:11 98.2 112 20 122/78 94 Room Air 12/22/16 21:31 97.3 12/22/16 20:33 Room Air 12/22/16 20:33 Room Air 12/22/16 20:30 131/83 12/22/16 19:08 97.3 95 18 131/83 90 Room Air Laboratory Tests Test 12/23/16 05:55 White Blood Count 9.7 K/UL (4.8-10.8) Red Blood Count 3.98 M/UL (4.20-5.40) L Hemoglobin 13.1 G/DL (12.0-16.0) Hematocrit 41.8 % (37.0-47.0) Mean Corpuscular Volume 105 FL (80-99) H Mean Corpuscular Hemoglobin 33.0 PG (27.0-31.0) H Mean Corpuscular Hemoglobin Concent 31.4 G/DL (32.0-36.0) L Red Cell Distribution Width 14.6 % (11.6-14.8) Platelet Count 250 K/UL (150-450) Mean Platelet Volume 6.8 FL (6.5-10.1) Neutrophils (%) (Auto) 70.4 % (45.0-75.0) Lymphocytes (%) (Auto) 19.7 % (20.0-45.0) L Monocytes (%) (Auto) 8.3 % (1.0-10.0) Eosinophils (%) (Auto) 0.9 % (0.0-3.0) Basophils (%) (Auto) 0.7 % (0.0-2.0) Sodium Level 136 MMOL/L (136-145) Potassium Level 5.0 MMOL/L (3.5-5.1) Chloride Level 100 MMOL/L (98-107) Carbon Dioxide Level 35 MMOL/L (21-32) H Anion Gap 1 mmol/L (5-15) L Blood Urea Nitrogen 18 mg/dL (7-18) Creatinine 1.3 MG/DL (0.55-1.30) Estimat Glomerular Filtration Rate 50.4 mL/min (>60) Glucose Level 239 MG/DL (74-106) H Calcium Level 8.8 MG/DL (8.5-10.1) Height (Feet): 5 Height (Inches): 2.00 Weight (Pounds): 240 General Appearance: WD/WN, no apparent distress, alert, morbidly obese Cardiovascular: normal rate Respiratory/Chest: normal breath sounds, no respiratory distress Abdominal Exam: normal bowel sounds, non tender, soft Extremities: normal range of motion, non-tender Cassy Oconnor N.P. Dec 23, 2016 16:46
--- NOTE | 2016-12-25 14:27 | Discharge Summary ---
Discharge Summary Hospital Course Date of Admission Dec 19, 2016 at 12:09 Date of Discharge Dec 23, 2016 at 16:15 Admitting Diagnosis gi bleeding HPI Ernesto Finch is a 61 year old female who was admitted on Dec 19, 2016 at 12:09 for Gastrointestinal Bleeding Hospital Course [id number] Discharge Discharge Disposition Patient was discharged to Home (01) Discharge Diagnoses: Lesly Engle NP Dec 25, 2016 14:27
--- NOTE | 2016-12-25 21:30 | Discharge Summary 2 SIG ---
DATE OF ADMISSION: 12/19/2016 DATE OF DISCHARGE: 12/23/2016 CONSULTANTS: 1. Chucho Gamboa M.D. 2. Alexis Mancuso M.D. BRIEF HOSPITAL COURSE: The patient is a 61-year-old female with history of chronic obstructive pulmonary disease and hypertension, presented to ED complaining of abdominal pain with vomiting and diarrhea, noticed increased fresh blood in the stools and had diffuse abdominal cramping with chills. She also had increased shortness of breath especially with ambulation and feels generally weak. On evaluation at ED, CAT scan imaging of the abdomen showed acute sigmoid diverticulitis. Chest x-ray showed interstitial edema. Potassium was 2.9 and WBC was 13.7. She was started on IV aztreonam and Flagyl. Stool culture was negative for Salmonella, Shigella, and Campylobacter and negative for C. diff. She had a venous duplex of the lower extremity that was patent bilaterally. She was given bowel regimen and was given laxatives. Stool OB was positive. She was recommended outpatient colonoscopy. Hemoglobin levels have been stable. Sputum culture was negative. Antibiotic was transitioned to p.o. to continue antibiotics at home. FINAL DIAGNOSES: 1. Acute diverticulitis. 2. Gastrointestinal bleed. 3. Hypertension. 4. Osteoarthritis. 5. Diabetes mellitus. 6. Hypoalbuminemia. 7. Elevated lipase. 8. Cyclic vomiting. 9. Hypokalemia. 10. Acute kidney injury. 11. Chronic obstructive pulmonary disease. 12. Penicillin allergy (severe anaphylaxis). DISPOSITION: The patient was discharged home. DISCHARGE MEDICATIONS: Continue with Flagyl 500 mg q.8 hours for four days and Keflex 500 mg q.12 hours. FOLLOWUP: The patient was advised to follow up with PMD in a week. Maritza Leonard M.D. I have been assigned to dictate discharge summary on this account and I was not involved in the patient's management. Lesly Engle N.P. DR: CRISTÓBAL JOB#: [id number] CC:
--- NOTE | 2016-12-28 16:13 | Cardiology Report ---
APPROVED REPORT EKG Measurement Heart [id number] Normal sinus rhythm Minimal voltage criteria for LVH, may be normal variant Nonspecific T wave abnormality Abnormal ECG
== END 2016-12-23 16:15 | disposition home or self-care (01) | DRG 244 ==
LOC: EMR 11:37 → 4E 12:09 → EDBEDREQ 12:19
DX: K57.33 Diverticulitis of large intestine without perforation or abscess with bleeding (principal); N17.9 Acute kidney failure, unspecified; E88.09 Other disorders of plasma-protein metabolism, not elsewhere classified; E66.01 Morbid (severe) obesity due to excess calories; I10 Essential (primary) hypertension; M19.90 Unspecified osteoarthritis, unspecified site; E11.9 Type 2 diabetes mellitus without complications; G43.A0 Cyclical vomiting, in migraine, not intractable; E87.6 Hypokalemia; J44.9 Chronic obstructive pulmonary disease, unspecified; Z88.0 Allergy status to penicillin; Z91.018 Allergy to other foods; Z79.4 Long term (current) use of insulin; I70.90 Unspecified atherosclerosis; M51.37 Other intervertebral disc degeneration, lumbosacral region; Z88.7 Allergy status to serum and vaccine; F12.90 Cannabis use, unspecified, uncomplicated; R74.8 Abnormal levels of other serum enzymes; J40 Bronchitis, not specified as acute or chronic
CPT/HCPCS: 36415; 71010; 74176; 80048; 80053; 82150; 82270; 82550; 82553; 82962; 83690; 83735; 83880; 84100; 84484; 85007; 85025; 85610; 85651; 85730; 86140; 87045; 87070; 87205; 87324; 93005; 93970; 94640; 99285; J1815; J2405; J8499